=== PATIENT | male | born 1945 | race Caucasian/White ===

== ENCOUNTER → 2018-06-27 14:00 | Outpatient (CLI) | payer MEDICARE, OTHER, SELFPAY | PROVIDERS: PCP Family Medicine; Visit Provider Internal Medicine Cardiovascular Disease | DX: I25.810 Atherosclerosis of coronary artery bypass graft(s) without angina pectoris (principal); Z95.818 Presence of other cardiac implants and grafts; I25.5 Ischemic cardiomyopathy; I48.91 Unspecified atrial fibrillation; I48.92 Unspecified atrial flutter; I10 Essential (primary) hypertension; Z45.02 Encounter for adjustment and management of automatic implantable cardiac defibrillator | CPT/HCPCS: 93284; 99214 ==

== ENCOUNTER → 2018-07-03 08:08 | Outpatient (CLI) | payer MEDICARE, OTHER, SELFPAY ==
[2018-07-03 08:27] VITALS: BP 114/85; PULSE 87; RESP 16; TEMP 36.6; O2SAT 96
--- NOTE | 2018-07-03 08:30 | DI.REPORT_ITS ---
SYMPTOM/DIAGNOSIS: BURSA INJECTION ULTRASOUND GUIDANCE : 07/03 Images were obtained at the time of the procedure and show needle placement in the region of what appears to be trochanteric bursa on the left. Ultrasound guidance was performed for reported bursa injection performed by Dr. Waters. Please see Dr. Waters's procedure note.
[2018-07-03 09:12] VITALS: O2SAT 97
--- NOTE | 2018-07-03 09:14 | PDOC.PAIN ---
Date of Service: 07/03/18 Time of Service: 09:15 Pain Clinic Procedure Note ULTRASOUND GUIDED LEFT TROCHANTERIC BURSA INJECTION Pre-Procedural Evaluation: AGNIESZKA BATRES has been referred to the [facility] for an Ultrasound Guided left TROCHANTERIC BURSA injection for a chief complaint of LEFT LATERAL HIP PAIN. Pre-procedure Pain ScoreL 6/10 DX: LEFT TROCHANTERIC BURSITIS Patient was interviewed and the medical record reviewed. There were no medical, pharmacologic, radiographic, or other structural contraindications to preforming an ultrasound guided injection. Risks and expected side effects as well as potential benefits of the procedure were reviewed. The patient consent form was signed and witnessed. Standard time-out procedure was performed. The use of direct ultrasound visualization of the needle (rather than a non-guided injection) was required to increase patient safety by excluding inadvertent intramuscular, intratendinous, or intraneural needle placement and minimizing bleeding by avoiding osteochondral or vascular injury from the needle. Additionally, the increased accuracy of placement may increase clinical effectiveness and will allow higher diagnostic specificity when evaluating effectiveness of this injection. Procedure Description: The patient was placed in the RIGHT LATERAL RECUMBANT position and automated blood pressure cuff and pulse oximeter applied for monitoring during the procedure and recorded in the medical record. Pre-injection ultrasound scanning of the area of interest was performed using LINEAR transducer, identifying relevant anatomy, landmarks, and neurovascular structures allowing for optimal needle path. The site was then prepared in the usual sterile fashion, using thorough Chlorhexadine preparation of the skin and sterile draping. The same ultrasound transducer was then passed into the sterile field using sterile probe cover and sterile ultrasound gel. The injection target was again visualized. Skin and subcutaneous tissues were anesthetized with 1 mL of 1% Lidocaine. A 25 guage needle 1.5 inch needle was placed under live ultrasound guidance, using an in-plane approach, to the target area. After visualization of the needle tip at the target area, a mixture of 2 mL 1% Lidocaine and 1 mL Depomedrol (80 mg/cc), totaling 3 mL of injectate was delivered after negative aspiration for blood. Ultrasound images were captured and stored for documentation purposes. Post-procedure Pain Score: 1/10 Vital signs were stable throughout the procedure and were as recorded in the docflowsheet by the nursing staff. Follow up plans and appointments were discussed with the patient.Post procedure instruction was given as documented in nursing documentation and having met discharge criteria, they were discharged from the [facility]. COMMENTS: This procedure should be followed by a home exercise program and can be completed up to 3 times per 12 months if it is found to be helpful.
--- NOTE | 2018-07-03 09:19 | PDOC.PAIN_ITS ---
Date of Service: 07/03/18 Time of Service: 09:15 Pain Clinic Procedure Note ULTRASOUND GUIDED LEFT TROCHANTERIC BURSA INJECTION Pre-Procedural Evaluation: AGNIESZKA BATRES has been referred to the [facility] for an Ultrasound Guided left TROCHANTERIC BURSA injection for a chief complaint of LEFT LATERAL HIP PAIN. Pre-procedure Pain ScoreL 6/10 DX: LEFT TROCHANTERIC BURSITIS Patient was interviewed and the medical record reviewed. There were no medical , pharmacologic, radiographic, or other structural contraindications to preforming an ultrasound guided injection. Risks and expected side effects as well as potential benefits of the procedure were reviewed. The patient consent form was signed and witnessed. Standard time-out procedure was performed. The use of direct ultrasound visualization of the needle (rather than a non- guided injection) was required to increase patient safety by excluding inadvertent intramuscular, intratendinous, or intraneural needle placement and minimizing bleeding by avoiding osteochondral or vascular injury from the needle. Additionally, the increased accuracy of placement may increase clinical effectiveness and will allow higher diagnostic specificity when evaluating effectiveness of this injection. Procedure Description: The patient was placed in the RIGHT LATERAL RECUMBANT position and automated blood pressure cuff and pulse oximeter applied for monitoring during the procedure and recorded in the medical record. Pre-injection ultrasound scanning of the area of interest was performed using LINEAR transducer, identifying relevant anatomy, landmarks, and neurovascular structures allowing for optimal needle path. The site was then prepared in the usual sterile fashion, using thorough Chlorhexadine preparation of the skin and sterile draping. The same ultrasound transducer was then passed into the sterile field using sterile probe cover and sterile ultrasound gel. The injection target was again visualized. Skin and subcutaneous tissues were anesthetized with 1 mL of 1% Lidocaine. A 25 guage needle 1.5 inch needle was placed under live ultrasound guidance, using an in-plane approach, to the target area. After visualization of the needle tip at the target area, a mixture of 2 mL 1% Lidocaine and 1 mL Depomedrol (80 mg/cc ), totaling 3 mL of injectate was delivered after negative aspiration for blood. Ultrasound images were captured and stored for documentation purposes. Post-procedure Pain Score: 1/10 Vital signs were stable throughout the procedure and were as recorded in the docflowsheet by the nursing staff. Follow up plans and appointments were discussed with the patient.Post procedure instruction was given as documented in nursing documentation and having met discharge criteria, they were discharged from the [facility]. COMMENTS: This procedure should be followed by a home exercise program and can be completed up to 3 times per 12 months if it is found to be helpful.
[2018-07-03] MEDS: methylPREDNISolone ACETATE 40 MG/ML VIAL IJ (09:29)
== END ==
PROVIDERS: PCP Family Medicine; Visit Provider Preventive Medicine Occupational Medicine
DX: M70.62 Trochanteric bursitis, left hip (principal); Z79.01 Long term (current) use of anticoagulants
CPT/HCPCS: 20610; 76942; J1030

== ENCOUNTER 2018-10-13 09:12 | Outpatient (CLI) | payer MEDICARE, OTHER, SELFPAY ==
[2018-10-13 10:52] LABS: HCT 47.3 % (40.0-50.0); HGB 15.7 g/dL (13.5-17.5); Mean Corp. HGB Concentration 33.2 g/dL (32.0-36.0); Mean Corpuscular Hemoglobin 32.5 pg (27.0-33.0); Mean Corpuscular Volume 97.9 fL (80-95); Mean Platelet Volume 10.6 fL (8.0-11.0); Platelet Count 182 x1000/uL (130-400); RBC 4.83 m/cumm (4.50-6.00); RBC Distribution Width 12.9 % (11.8-14.1); White Blood Cell Count 4.01 k/cumm (4.4-10.8)
[2018-10-13 11:34] LABS: ALT 39 U/L (12-78); AST 26 U/L (15-37); Albumin 3.8 g/dL (3.4-5.0); Alkaline Phosphatase 62 U/L (46-116); Anion Gap 7.3 mmol/L (3-11); BUN 11 mg/dL (7-18); Bilirubin, Total 0.9 mg/dL (0.2-1.0); CO2 31.7 mmol/L (21.0-32.0); Calcium 9.6 mg/dL (8.5-10.1); Chloride 101 mmol/L (98-107); Cholesterol 264 mg/dL (50-200); Glucose 104 mg/dL (70-100); HDL Cholesterol 62 mg/dL (40-60); LDL CHOLESTEROL 161 mg/dL (<100); Potassium 4.2 mmol/L (3.5-5.1); Sodium 140 mmol/L (136-145); Total Protein 6.8 g/dL (6.4-8.2); Triglyceride 308 mg/dL (30-150)
== END 2018-10-13 09:32 ==
PROVIDERS: PCP Family Medicine; Visit Provider Family Medicine
DX: I50.20 Unspecified systolic (congestive) heart failure (principal); I10 Essential (primary) hypertension; Z95.810 Presence of automatic (implantable) cardiac defibrillator; Z79.01 Long term (current) use of anticoagulants
CPT/HCPCS: 80053; 80061; 83721; 85027

== ENCOUNTER → 2018-11-07 13:53 | Outpatient (BNVA) | payer MEDICARE, OTHER, SELFPAY | PROVIDERS: PCP Family Medicine; Visit Provider Internal Medicine Cardiovascular Disease | DX: I25.5 Ischemic cardiomyopathy (principal); I50.22 Chronic systolic (congestive) heart failure; I25.10 Atherosclerotic heart disease of native coronary artery without angina pectoris; I47.1 Supraventricular tachycardia; I11.0 Hypertensive heart disease with heart failure; Z45.018 Encounter for adjustment and management of other part of cardiac pacemaker | CPT/HCPCS: 93284; 99213 ==

== ENCOUNTER 2019-01-07 14:47 | Outpatient (CLI) | payer MEDICARE, OTHER, SELFPAY ==
[2019-01-07 15:48] LABS: HCT 45.4 % (40.0-50.0); HGB 15.3 g/dL (13.5-17.5); Mean Corp. HGB Concentration 33.7 g/dL (32.0-36.0); Mean Corpuscular Hemoglobin 32.3 pg (27.0-33.0); Mean Corpuscular Volume 95.8 fL (80-95); Mean Platelet Volume 10.2 fL (8.0-11.0); Platelet Count 169 x1000/uL (130-400); RBC 4.74 m/cumm (4.50-6.00); RBC Distribution Width 13.7 % (11.8-14.1); White Blood Cell Count 4.47 k/cumm (4.4-10.8)
[2019-01-07 17:07] LABS: INR 1.1 (0.9-1.1); Prothrombin Time 11.4 sec (9.3-11.0)
[2019-01-07 17:18] LABS: ALT 34 U/L (12-78); AST 26 U/L (15-37); Albumin 3.6 g/dL (3.4-5.0); Alkaline Phosphatase 74 U/L (46-116); Anion Gap 9.4 mmol/L (3-11); BUN 9 mg/dL (7-18); CO2 30.6 mmol/L (21.0-32.0); CREATININE 0.57 mg/dL (0.70-1.30); Calcium 9.1 mg/dL (8.5-10.1); Chloride 105 mmol/L (98-107); Glucose 83 mg/dL (70-100); Sodium 145 mmol/L (136-145)
== END 2019-01-07 15:07 ==
PROVIDERS: PCP Family Medicine; Visit Provider Family Medicine
DX: I10 Essential (primary) hypertension (principal); I25.5 Ischemic cardiomyopathy; Z01.818 Encounter for other preprocedural examination
CPT/HCPCS: 36415; 80053; 85027; 71046; 85610

== ENCOUNTER 2019-01-07 16:45 | Outpatient (CLI) | payer MEDICARE, SELFPAY ==
--- NOTE | 2019-01-07 14:30 | DI.RAD_ITS ---
SYMPTOM/DIAGNOSIS: PREOP, Z01.818, PREPROCEDURAL EXAM PA AND LATERAL CHEST: Comparison is made with 06/17/17. There is unchanged elevation of the right hemidiaphragm. Cardiac silhouette is stable. There has been interval placement of pacing wires which are in good position. Pulmonary vasculature is within normal limits. No effusions, infiltrates or pneumothoraces are identified. There is scarring seen in the right upper lobe. Degenerative changes are seen in the spine. IMPRESSION: No acute pulmonary process.
== END 2019-01-07 17:05 ==
PROVIDERS: PCP Family Medicine; Visit Provider Family Medicine
DX: I25.5 Ischemic cardiomyopathy (principal); Z01.818 Encounter for other preprocedural examination
CPT/HCPCS: 71046

== ENCOUNTER 2019-01-22 14:09 | Outpatient (CLI) | payer MEDICARE, OTHER, SELFPAY ==
--- NOTE | 2019-01-22 14:39 | DI.CT_ITS ---
SYMPTOMS/DIAGNOSIS: SURGICAL PLANNING FOR LUMBAR FUSION, LUMBAR FORAMINAL STENOSIS, M99.83, LUMBAR RADICULOPATHY, M54.16 CT SCAN OF THE LUMBAR SPINE: Multiple contiguous axial images of the lumbar spine were obtained. Sagittal and coronal reformatted images were evaluated on the Siemens workstation. There is normal alignment of the lumbar spine. No spondylosis or spondylolisthesis is seen. There is an unchanged compression deformity of the superior endplate of L 3. This was present on the MRI of the lumbar spine from 08/12/18. No acute compression fractures are seen in the lumbar spine. At L 5 - S 1 no diffuse disc bulge or focal disc herniation is seen. There are degenerative changes of the facets. No significant neural foraminal stenosis is present. At L 4 - 5 there is a diffuse disc bulge. There are degenerative changes of the facets and hypertrophy of the ligament of flavum causing mild narrowing of the central spinal canal. There is mild narrowing of the right neural foramen and severe narrowing of the left neural foramen. At L 3 - 4 there is a vacuum disc. There is a diffuse disc bulge. There are hypertrophic changes of the facets and ligament of flavum. The findings cause mild to moderate central spinal canal stenosis. There is moderate right neural foraminal stenosis and mild left neural foraminal stenosis. At L 2 - 3 there is a vacuum disc. There is a mild diffuse disc bulge. No significant central spinal canal stenosis is present. No significant neural foraminal stenosis is seen. At L 1 - 2 there is no focal disc herniation, central spinal canal or neural foraminal stenosis. There is atherosclerosis and tortuosity of the thoracic aorta. IMPRESSION: 1. Multi-level degenerative changes in the lumbar. 2. Degenerative changes are most marked at L 3 - 4 and L 4 - 5 where there is central spinal canal and neural foraminal stenosis as described above.
== END 2019-01-22 14:29 ==
PROVIDERS: PCP Family Medicine; Referring Provider Physician Assistant
DX: M54.16 Radiculopathy, lumbar region (principal); M47.26 Other spondylosis with radiculopathy, lumbar region
CPT/HCPCS: 72131

== ENCOUNTER 2019-02-19 16:41 | Outpatient (CLI) | payer MEDICARE, OTHER, SELFPAY ==
--- NOTE | 2019-02-19 11:10 | DI.RAD_ITS ---
SYMPTOM/DIAGNOSIS: H/O PNEUMONIA, ISCHEMIC CARDIOMYOPATHY, I25.5, PREOP PA AND LATERAL CHEST: The lungs are free of infiltrate. There is no pleural effusion. Note is made of chronic elevation of the right hemidiaphragm. The heart is top limits of normal in size to mildly enlarged. Pacing wires are in stable position. The hilar structures, mediastinum and tracheal air column are intact. SUMMARY: No evidence of acute cardiopulmonary disease.
[2019-02-19 11:59] LABS: HCT 45.7 % (40.0-50.0); HGB 15.2 g/dL (13.5-17.5); Mean Corp. HGB Concentration 33.3 g/dL (32.0-36.0); Mean Corpuscular Hemoglobin 31.8 pg (27.0-33.0); Mean Corpuscular Volume 95.6 fL (80-95); Mean Platelet Volume 10.5 fL (8.0-11.0); Platelet Count 159 x1000/uL (130-400); RBC 4.78 m/cumm (4.50-6.00); RBC Distribution Width 13.9 % (11.8-14.1); White Blood Cell Count 4.97 k/cumm (4.4-10.8)
[2019-02-19 12:06] LABS: INR 1.2 (0.9-1.1); Prothrombin Time 11.6 sec (9.3-11.0)
[2019-02-19 12:35] LABS: ALT 25 U/L (12-78); AST 16 U/L (15-37); Albumin 3.8 g/dL (3.4-5.0); Alkaline Phosphatase 65 U/L (46-116); Anion Gap 8.2 mmol/L (3-11); BUN 14 mg/dL (7-18); Bilirubin, Total 1.1 mg/dL (0.2-1.0); CO2 30.8 mmol/L (21.0-32.0); Calcium 9.2 mg/dL (8.5-10.1); Chloride 102 mmol/L (98-107); Glucose 115 mg/dL (70-100); Potassium 3.9 mmol/L (3.5-5.1); Sodium 141 mmol/L (136-145); Total Protein 6.7 g/dL (6.4-8.2)
== END 2019-02-19 17:01 ==
PROVIDERS: PCP Family Medicine; Visit Provider Family Medicine
DX: I25.5 Ischemic cardiomyopathy (principal); I10 Essential (primary) hypertension; Z95.0 Presence of cardiac pacemaker; Z01.818 Encounter for other preprocedural examination; Z79.01 Long term (current) use of anticoagulants
CPT/HCPCS: 36415; 80053; 85027; 71046; 85610

== ENCOUNTER → 2019-03-03 10:19 | Outpatient (BNVA) | payer MEDICARE, OTHER, SELFPAY | PROVIDERS: PCP Family Medicine; Visit Provider Nurse Practitioner Primary Care | DX: I25.5 Ischemic cardiomyopathy (principal); I10 Essential (primary) hypertension; I25.10 Atherosclerotic heart disease of native coronary artery without angina pectoris; I47.1 Supraventricular tachycardia; Z79.01 Long term (current) use of anticoagulants; Z45.02 Encounter for adjustment and management of automatic implantable cardiac defibrillator | CPT/HCPCS: 93289; 99214 ==

== ENCOUNTER → 2019-06-18 13:49 | Outpatient (BNVA) | payer MEDICARE, OTHER, SELFPAY | PROVIDERS: PCP Family Medicine; Visit Provider Internal Medicine Cardiovascular Disease | DX: I25.5 Ischemic cardiomyopathy (principal); I11.0 Hypertensive heart disease with heart failure; I50.22 Chronic systolic (congestive) heart failure; Z45.02 Encounter for adjustment and management of automatic implantable cardiac defibrillator; I48.2 Chronic atrial fibrillation; I47.1 Supraventricular tachycardia; Z95.1 Presence of aortocoronary bypass graft; Z87.891 Personal history of nicotine dependence; Z79.01 Long term (current) use of anticoagulants; Z72.89 Other problems related to lifestyle | CPT/HCPCS: 93284; 99214 ==

== ENCOUNTER 2019-09-14 10:27 | Emergency (ER) | payer MEDICARE, OTHER, SELFPAY ==
[2019-09-14 10:42] VITALS: BP 139/103; PULSE 85; RESP 16; TEMP 36.4; O2SAT 96
--- NOTE | 2019-09-14 12:16 | DI.RAD_ITS ---
EXAM: XR CHEST 2V PA LATERAL INDICATION: cough, congestion, SOB, h/o PNA. COMPARISON: XR CHEST 2V PA LATERAL from 02/19/2019 TECHNIQUE: 2D digital imaging was performed. FINDINGS: The heart is mildly enlarged. The pacing wires are stable in position. The pulmonary vasculature is within normal limits. There is unchanged scarring in the right mid lung. No focal consolidating in filtrates are present. No pleural effusions or pneumothoraces are identified. There is unchanged el evation of the right hemidiaphragm. Age-appropriate degenerative changes are seen in the spine. IMPRESSION: No acute pulmonary process.
[2019-09-14 12:49] LABS: Abs Immature Grans 0.02 k/cumm (0.0-0.09); Absolute Basophil Count 0.04 k/cumm (0.0-0.2); Absolute Eosinophil Count 0.18 k/cumm (0.0-0.7); Absolute Lymphocyte Count 1.07 k/cumm (1.2-3.4); Absolute Monocyte Count 0.59 k/cumm (0.11-0.7); Absolute Neutrophil Count 4.63 k/cumm (1.2-6.7); Basophils % 0.6; Eosinophils % 2.8; HCT 44.7 % (40.0-50.0); Immature Grans % 0.3; Lymphocytes % 16.4; Mean Corp. HGB Concentration 33.6 g/dL (32.0-36.0); Mean Corpuscular Hemoglobin 31.1 pg (27.0-33.0); Mean Corpuscular Volume 92.5 fL (80-95); Mean Platelet Volume 9.8 fL (8.0-11.0); Neutrophils % 70.9; Platelet Count 237 x1000/uL (130-400); RBC 4.83 m/cumm (4.50-6.00); RBC Distribution Width 14.8 % (11.8-14.1); White Blood Cell Count 6.53 k/cumm (4.4-10.8)
[2019-09-14 12:59] LABS: ALT 24 U/L (16-63); AST 15 U/L (15-37); Albumin 3.6 g/dL (3.4-5.0); Alkaline Phosphatase 95 U/L (46-116); Anion Gap 6.3 mmol/L (3-11); BUN 12 mg/dL (7-18); Bilirubin, Total 1.5 mg/dL (0.2-1.0); CO2 28.7 mmol/L (21.0-32.0); CREATININE 0.75 mg/dL (0.70-1.30); Calcium 9.4 mg/dL (8.5-10.1); Chloride 103 mmol/L (98-107); Glucose 123 mg/dL (70-100); Potassium 3.8 mmol/L (3.5-5.1); Sodium 138 mmol/L (136-145); Total Protein 7.3 g/dL (6.4-8.2)
--- NOTE | 2019-09-14 13:01 | W.ED.GENAD ---
Discharge Plan Disposition Patient Disposition: HOME Discharge Details Chief Complaint: RespSymp Clinical Impression: Acute upper respiratory infection Primary Care Provider: Isabel Maciel ED Provider: Dago Denton Home Meds and New Rx's Prescriptions: No Action multivitamin 1 EACH tablet 1 ea PO DAILY RF: 0 aspirin [Aspirin Low-Strength] 81 MG tablet,chewable 1 tab.chew PO DAILY RF: 0 cholecalciferol (vitamin D3) 1,000 UNIT capsule 1 cap PO DAILY RF: 0 magnesium oxide 500 MG capsule 1 cap PO BID RF: 0 carvedilol 25 mg tablet 25 mg PO BID RF: 0 Eliquis 5 mg tablet 5 mg PO BID Qty: 180 RF: 12 lisinopril 10 mg tablet 10 mg PO DAILY Qty: 90 RF: 3 prednisone 10 mg tablet 10 mg PO DAILY PRN (Reason: spinal stenosis) Qty: 60 RF: 0 indomethacin 25 mg capsule 25 mg PO BID Qty: 60 RF: 0 Discharge Instructions Instructions: Upper Respiratory Infection (ED) Additional Instructions: Your x-ray was negative for pneumonia in the emergency department. Blood tests were normal. Most likely viral upper respiratory infection at play. Continue with supportive care. Return to the emergency department should your symptoms acutely worsen. Follow-up with your primary care provider should they persist over the next 4 to 7 days. Referrals: Isabel Maciel [place], [place] [Primary Care Provider] - 1 week Medical Decision Making This is a nontoxic-appearing 74-year-old male presenting to the emergency department with symptoms of cough and sore throat over the last 3 weeks. His had similar symptoms which have resolved. His checks x-ray is negative for pneumonia. Labs are unremarkable. Vitals are stable here in the emergency department and he has no worrisome signs on physical exam. We discussed the likelihood lingering viral URI and the need to follow-up with his primary care provider should his symptoms persist. If his symptoms acutely worsen he should return to the emergency department immediately. HPI General Date/Time Provider Initiated Documentation: 09/14/19 10:41. HPI Narrative: Patient is a 74-year-old male who states that roughly 3 weeks ago developed URI symptoms and fatigue. He states that his symptoms of cough and sore throat have persisted over the last 3 weeks. His cough is worse with lying flat. He denies any shortness of breath or chest pain. His had similar symptoms however her symptoms are now resolved. He denies any nausea or vomiting. No abdominal pain. No rashes. No headache. He has not had any fevers however has reported chills and fatigue Related Data Home Medications Medication Instructions Recorded Confirmed aspirin [Aspirin Low-Strength] 1 tab.chew PO DAILY tab-cap 03/23/13 09/14/19 cholecalciferol (vitamin D3) 1 cap PO DAILY 03/23/13 06/18/19 multivitamin 1 ea PO DAILY 03/23/13 09/14/19 magnesium oxide 1 cap PO BID 06/24/17 09/14/19 carvedilol 25 mg tablet 25 mg PO BID 01/06/19 09/14/19 apixaban 5 mg tablet 5 mg PO BID #180 tab 06/08/19 09/14/19 lisinopril 10 mg tablet 10 mg PO DAILY #90 tab-cap 06/15/19 09/14/19 prednisone 10 mg tablet 10 mg PO DAILY PRN #60 tab-cap 07/03/19 09/14/19 indomethacin 25 mg capsule 25 mg PO BID #60 cap 08/13/19 09/14/19 Previous Rx's Medication Instructions Recorded apixaban 5 mg tablet 5 mg PO BID #180 tab 06/08/19 lisinopril 10 mg tablet 10 mg PO DAILY #90 tab-cap 06/15/19 prednisone 10 mg tablet 10 mg PO DAILY PRN #60 tab-cap 07/03/19 indomethacin 25 mg capsule 25 mg PO BID #60 cap 08/13/19 Allergies Allergy/AdvReac Type Severity Reaction Status Date / Time niacin AdvReac Intermediate GETS HOT Unverified 09/14/19 10:44 AND RED ALL OVER Gjotuji-Mtm-Mrl Reductase AdvReac Intermediate FEELS Unverified 09/14/19 10:44 Inhibitor ROTTEN General Stated Complaint: RespSymp BROOKS: 4 Review of Systems Constitutional Constitutional: Reports fatigue, Denies fever(s), Reports lethargy, Reports malaise, Denies night sweats and Reports weakness ENT Ears, Nose, Mouth, and Throat: Denies neck pain, Reports sinus pressure and Reports sore throat Cardiovascular Cardiovascular: Denies chest pain, Denies dyspnea, Denies dyspnea on exertion, Denies orthopnea and Denies paroxysmal nocturnal dyspnea Respiratory Respiratory: Denies dyspnea, Denies dyspnea on exertion and Denies wheezing Gastrointestinal Gastrointestinal: Denies nausea and Denies vomiting Genitourinary Genitourinary: Denies flank pain Musculoskeletal Musculoskeletal: Denies neck pain Integumentary/Breasts Skin/Breast: Denies rash Neurologic Neurologic: Reports weakness Endocrine Endocrine: Reports fatigue Allergic/Immunologic Allergic/Immunologic: Denies wheezing [facility] Medical History Alcohol intake above recommended sensible limits (Chronic) Anticoagulant long-term use (Chronic 08/16/17) Atrial tachycardia (Chronic 08/16/17) Benign prostatic hyperplasia (Chronic) Bilateral foot pain (Chronic 10/31/17) Cholesteatoma (Chronic 10/17/04) 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) [facility] Chronic systolic CHF, NYHA class 2 and LINDSEY/AHA stage C (Chronic 08/16/17) Disorder of lung (Resolved) lung infiltrate; question of aspiration long antibx couse Dario hematuria (Resolved) History of tobacco use (Resolved) Spinal stenosis of lumbar region at multiple levels (Chronic 07/12/15) Spinal stenosis of lumbar region with radiculopathy (Chronic) 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 Brother No problems noted. Grandfather Personal history of malignant neoplasm Grandfather No problems noted. Grandmother No problems noted. Grandmother Heart disease Sister No problems noted. Brother No problems noted. Son Depression Heart disease ND at 38, 6 stents Daughter No problems noted. Social History Smoking/Tobacco Use Status: Former Tobacco Use Alcohol Intake: current Alcohol Intake frequency: 0-2 drinks per day Details: significantly higher alcohol use in the past Drug use: Never Household members: spouse Exam Const General: cooperative, healthy appearing, comfortable and no acute distress Orientation: alert, awake and oriented x3 HENMT Head: normal to inspection Ears: hearing grossly normal bilaterally Face and sinus: normal facial exam Mouth: oral mucosae normal Throat: posterior oropharynx normal Eyes General: appearance normal, both eyes and all related structures Pupils: PERRL EOM: EOM intact bilaterally Neck Neck: normal visual inspection, full ROM, no lymphadenopathy and no meningeal signs Chest Chest: normal inspection of the chest Resp Effort & Inspection: normal respiratory effort and able to speak in complete sentences Auscultation: clear to auscultation bilaterally Cardio Rate: regular rate Rhythm: abnormal rhythm irregularly irregular Pulses: normal peripheral pulses GI Inspection: normal to inspection Back/Spine/Pelvis Back: no CVA tenderness Skin Rashes: no rashes Extrem General: normal to inspection, full ROM, normal capillary refill and no pedal edema Course Vital Signs Vital signs: Vital Signs Temperature 36.4 C L 09/14/19 10:42 Pulse 85 09/14/19 10:42 Respiratory Rate 16 09/14/19 10:42 Blood Pressure 139/103 H 09/14/19 10:42 Pulse Oximetry 96 09/14/19 10:42 Temperature 36.4 C L 09/14/19 10:42 Temperature Source Skin 09/14/19 10:42 Pulse 85 09/14/19 10:42 Respiratory Rate 16 09/14/19 10:42 Respiratory Effort 09/14/19 10:56 Respiratory Depth Normal 09/14/19 10:56 Blood Pressure 139/103 H 09/14/19 10:42 Blood Pressure Position Sitting 09/14/19 10:42 Pulse Oximetry 96 09/14/19 10:42 Oxygen Delivery Method Room Air 09/14/19 10:42 Oxygen Flow Rate 0 09/14/19 10:42 Pain Level 0 09/14/19 10:42 Lab/Test Results Lab/Test Results: 09/14/19 12:43 Nasopharynx Influenza Types A,B Antigen - Pending Laboratory Tests Range/Units 09/14/19 09/14/19 12:40 12:40 WBC (4.4-10.8) k/cumm 6.53 RBC (4.50-6.00) m/cumm 4.83 Hgb (13.5-17.5) g/dL 15.0 Hct (40.0-50.0) % 44.7 MCV (80-95) fL 92.5 MCH (27.0-33.0) pg 31.1 MCHC (32.0-36.0) g/dL 33.6 RDW (11.8-14.1) % 14.8 H Plt Count (130-400) x1000/uL 237 MPV (8.0-11.0) fL 9.8 Immature Gran % 0.3 Neutrophils % 70.9 Lymphocytes % 16.4 Monocytes % 9.0 Eosinophils % 2.8 Basophils % 0.6 Absolute Neutrophils (1.2-6.7) k/cumm 4.63 Absolute Lymphocytes (1.2-3.4) k/cumm 1.07 L Absolute Monocytes (0.11-0.7) k/cumm 0.59 Absolute Eosinophils (0.0-0.7) k/cumm 0.18 Absolute Basophils (0.0-0.2) k/cumm 0.04 Sodium (136-145) mmol/L 138 Potassium (3.5-5.1) mmol/L 3.8 Chloride (98-107) mmol/L 103 Carbon Dioxide (21.0-32.0) mmol/L 28.7 Anion Gap (3-11) mmol/L 6.3 BUN (7-18) mg/dL 12 Creatinine (0.70-1.30) mg/dL 0.75 Estimated GFR/1.73 m2 (mL/min/1.73m2) >= 60.00 Glucose (70-100) mg/dL 123 H Calcium (8.5-10.1) mg/dL 9.4 Total Bilirubin (0.2-1.0) mg/dL 1.5 H AST (15-37) U/L 15 ALT (16-63) U/L 24 Alkaline Phosphatase (46-116) U/L 95 Total Protein (6.4-8.2) g/dL 7.3 Albumin (3.4-5.0) g/dL 3.6
== END 2019-09-14 13:28 | disposition home or self-care (01) ==
PROVIDERS: Emergency Provider Physician Assistant; PCP Family Medicine
DX: J06.9 Acute upper respiratory infection, unspecified (principal); I50.22 Chronic systolic (congestive) heart failure; I11.0 Hypertensive heart disease with heart failure
CPT/HCPCS: 36415; 80053; 87449; 99284; 71046; 85025

== ENCOUNTER 2019-12-29 11:00 | Outpatient (CLI) | payer MEDICARE, OTHER, SELFPAY ==
--- NOTE | 2019-12-29 11:33 | DI.RAD_ITS ---
EXAM: XR CHEST 2V PA LATERAL INDICATION: chf, ischemic cardiomyopathy, I25.5. COMPARISON: XR CHEST 2V PA LATERAL from 09/14/2019 TECHNIQUE: 2D digital imaging was performed. FINDINGS: The heart is enlarged, unchanged. Pacemaker is again noted. Right diaphragm is elevated, unchanged . There is mild linear scarring. No superimposed infiltrate, effusion or pulmonary edema is seen. IMPRESSION: No acute abnormality.
[2019-12-29 11:43] LABS: Abs Immature Grans 0.01 k/cumm (0.0-0.09); Absolute Basophil Count 0.02 k/cumm (0.0-0.2); Absolute Eosinophil Count 0.09 k/cumm (0.0-0.7); Absolute Lymphocyte Count 0.94 k/cumm (1.2-3.4); Absolute Monocyte Count 0.41 k/cumm (0.11-0.7); Absolute Neutrophil Count 2.77 k/cumm (1.2-6.7); Basophils % 0.5; Eosinophils % 2.1; HCT 46.8 % (40.0-50.0); HGB 15.2 g/dL (13.5-17.5); Immature Grans % 0.2 %; Lymphocytes % 22.2; Mean Corp. HGB Concentration 32.5 g/dL (32.0-36.0); Mean Corpuscular Hemoglobin 31.8 pg (27.0-33.0); Mean Corpuscular Volume 97.9 fL (80-95); Mean Platelet Volume 10.5 fL (8.0-11.0); Monocytes % 9.7; Neutrophils % 65.3; Platelet Count 164 x1000/uL (130-400); RBC 4.78 m/cumm (4.50-6.00); RBC Distribution Width 14.6 % (11.8-14.1); White Blood Cell Count 4.24 k/cumm (4.4-10.8)
[2019-12-29 12:53] LABS: ALT 21 U/L (16-63); AST 17 U/L (15-37); Alkaline Phosphatase 72 U/L (46-116); Anion Gap 6.6 mmol/L (3-11); BUN 10 mg/dL (7-18); Bilirubin, Total 2.1 mg/dL (0.2-1.0); CO2 31.4 mmol/L (21.0-32.0); CREATININE 0.92 mg/dL (0.70-1.30); Calcium 9.5 mg/dL (8.5-10.1); Chloride 106 mmol/L (98-107); Glucose 115 mg/dL (74-106); Magnesium 1.7 mg/dL (1.8-2.4); NT-proBNP 8620 pg/mL (<300); Potassium 4.2 mmol/L (3.5-5.1); Sodium 144 mmol/L (136-145); TSH (W/Ref FT4) 1.47 uIU/mL (0.36-3.74); Total Protein 6.6 g/dL (6.4-8.2)
[2019-12-30 14:00] LABS: PSA, Diagnostic 0.6 ng/mL (0.0-6.5)
== END 2019-12-29 11:20 ==
PROVIDERS: PCP Family Medicine; Visit Provider Family Medicine
DX: I50.22 Chronic systolic (congestive) heart failure (principal); I25.5 Ischemic cardiomyopathy; R53.83 Other fatigue; N40.0 Benign prostatic hyperplasia without lower urinary tract symptoms
CPT/HCPCS: 36415; 80053; 71046; 83735; 83880; 84153; 84443; 85025

== ENCOUNTER 2020-01-08 13:04 | Outpatient (CLI) | payer MEDICARE, OTHER, SELFPAY ==
--- NOTE | 2020-01-08 13:00 | DI.US_ITS ---
APPROVED REPORT EXAM: Comprehensive 2D, Doppler, and color-flow Echocardiogram Patient Location: Out-Patient Farm Equipment Engineer: Eloina Barraza RDCS ([place]) Indications: Fatigue, Cardiomyopathy Conclusion Left Ventricle : The left ventricle is severely dilated. Left ventricular systolic function is mild t o moderately decreased. Asymmetric septal thickening is noted. The posterior wall thickness is mildl y increased. There is global hypokinesis There is grade 3 diastolic dysfunction present LVEF is 30-3 4%. Right Ventricle : Right ventricle is mildly dilated. Right ventricular systolic function could not be assessed. Atria : Left atrium is mildly dilated. Right atrium is mildly dilated. Aortic Valve : Aortic valve is trileaflet. Aortic valve is calcified. Trace aortic regurgitation. The re is no aortic valvular stenosis. Mitral Valve : There is mitral annular calcification. Mild to moderate mitral regurgitation. Tricuspid Valve : The tricuspid valve is normal in structure. Trace to mild tricuspid regurgitation. Great Vessels : The aortic root is normal in size. The ascending aorta is normal in size. The IVC c ollapses <50% with inspiration. Compared to echocardiogram dated 04/10/2017: There is no significant change. Wall motion Left Ventricle The left ventricle is severely dilated. Left ventricular systolic function is mild to moderately decr eased. Asymmetric septal thickening is noted. The posterior wall thickness is mildly increased. There is global hypokinesis. There is grade 3 diastolic dysfunction present LVEF is 30-34%. Right Ventricle Right ventricle is mildly dilated. Right ventricular systolic function could not be assessed. Atria Left atrium is mildly dilated. Right atrium is mildly dilated. Aortic Valve Aortic valve is trileaflet. Aortic valve is calcified. There is no aortic valvular stenosis. Trace ao rtic regurgitation. Mitral Valve There is mitral annular calcification. Mild to moderate mitral regurgitation. Tricuspid Valve The tricuspid valve is normal in structure. Trace to mild tricuspid regurgitation. Pulmonic Valve Pulmonic valve is grossly normal in structure. There is no pulmonic valvular stenosis. Mild pulmonic regurgitation. Great Vessels The aortic root is normal in size. The ascending aorta is normal in size. The IVC collapses <50% with inspiration. Pericardium There is no pericardial effusion. There is no pleural effusion. 2D Dimensions IVSD d PLAX 1.22 cm M: 0.6-1.2 LV Vol A2C d MOD 189.3 mL LVPW d PLAX 1.10 cm M: 0.6 - 1.2 LV Vol A4C d MOD 174.9 mL LVID d PLAX 6.37 cm M: 4.2 - 5.8 LA vol/ BSA A2C s A-L 33.9 mL/m2 LVDs 5.60 cm M: 2.5 - 4.0 LA vol/ BSA A4C s A-L 60.8 mL/m2 Ao Root d 3.31 cm M: 3.1 - 3.7 LA Vol/ BSA Biplane s A-L 46.2 mL/m2 RA Area A4C 22.29 cm2 LA Area A4C s MOD 30.11 cm2 RA Vol/ BSA A4C s A-L 42.4 mL/m2 LA Area A2C s MOD 22.86 cm2 Ao Asc Diam d 3.49 cm M: 2.6 - 3.4 LV EF A4C MOD 30.3 % LV EF Teichholz 24.0 % LV EF A2C MOD 33.0 % LVEF (Cohen's) 31.93 % M: 52 - 72 LV EF Biplane MOD 31.9 % LV Volume 137.33 mL M: 62 - 150 LV Volume Index 66.66 mL/m2 M: 34 - 74 LV Vol Biplane MOD 185.1 mL FS 11.30 % LV Diastology MV E' medial 0.043 (>0.07 m/s) E/A Ratio 2.7 LV E/e MED 15.45 (<14) MV E Vmax 0.67 (0.4-1.3 m/s) MV E' lateral 0.063 (>0.1 m/s) MV A Vmax 0.25 (0.4-1.3 m/s) LV E/e LAT 10.65 (<14) MV E/A Ratio 2.64 MV E/E' medial 15.47 MV E/E' lateral 10.67 Aortic Valve LVOT Vmax 0.81 m/s AR DT 1191 msec LVOT Mean Jasvir. 0.56 m/s AR PHT 345 msec LVOT Peak Grad 2.6 mmHg LVOT Mean Grad 1.4 mmHg LVOT VTI 0.148 m AoV Vmax 1.22 (0.5-1.3 m/s) Velocity Ratio 0.66 AoV Mean Jasvir. 0.84 m/s AoV Peak Grad 5.9 mmHg AoV Mean Grad 3.2 (<5 mmHg) AoV VTI 0.199 (0.18-0.25 m) Mitral Valve MV DT 232 (160-240 msec) MR Vmax 4.25 m/s MV PHT 67 msec MR VTI 1.361 m MV Area PHT 3.27 cm2 MR Peak Grad 72.4 mmHg MR Mean Grad 53.1 mmHg MR PISA Radius 0.69 cm MR EROA 0.33 cm2 MR Aliasing Velocity 0.46 m/s MR PISA 3.01 cm2 Pulmonary Valve PV Vmax 0.89 (0.5-1.5 m/s) PV Peak Grad 3.2 mmHg PV Mean Grad 1.5 mmHg PV VTI 0.121 m Tricuspid Valve TR Peak Grad 25.8 mmHg TR Vmax 2.54 m/s RA Pressure 8.00 mmHg
== END 2020-01-08 13:24 ==
PROVIDERS: PCP Family Medicine; Visit Provider Family Medicine
DX: I25.5 Ischemic cardiomyopathy (principal); R53.83 Other fatigue; I08.1 Rheumatic disorders of both mitral and tricuspid valves
CPT/HCPCS: 93306

== ENCOUNTER 2020-08-03 01:41 | Outpatient (CLI) | payer MEDICARE, OTHER, SELFPAY ==
--- NOTE | 2020-08-03 13:59 | DI.US_ITS ---
APPROVED REPORT EXAM: Comprehensive 2D, Doppler, and color-flow Echocardiogram Patient Location: Out-Patient Cash Applications Clerk: Eloina Barraza RDCS (AE) Indications: Cardiomyopathy Other Information Study Quality: Adequate Conclusion Left Ventricle : Left ventricle is severely dilated. Left ventricular systolic function is moderately decreased. Asymmetric septal thickening is noted. There is global hypokinesis of the left ventricle. The left ventricular diastolic function is abnormal. LVEF is 33%. Right Ventricle : The right ventricle is normal size. The right ventricular systolic function is low normal. The RVSP is 27.3 mmHg. Atria : Left atrium is mildly dilated. Right atrium is borderline dilated. Mitral Valve : Mild mitral annular calcification. No evidence of mitral valve stenosis. Mild to moder ate mitral regurgitation. Great Vessels : The aortic root is normal in size. The ascending aorta is mildly dilated. Ascending a peggy is not well visualized. IVC is normal in size and collapses >50% with inspiration. Please see remainder of study for further details. Compared to study from 01/08/2020: There is no sig nificant change. Wall motion Left Ventricle Left ventricle is severely dilated. Left ventricular systolic function is moderately decreased. Asymm etric septal thickening is noted. There is global hypokinesis of the left ventricle. The left ventric ular diastolic function is abnormal. There is no ventricular septal defect visualized. LVEF is 33%. Right Ventricle The right ventricle is normal size. The right ventricular systolic function is low normal. The RVSP i s 27.3 mmHg. Device lead is present in the right ventricle. Atria Left atrium is mildly dilated. Right atrium is borderline dilated. The interatrial septum is intact w ith no evidence for an atrial septal defect. Aortic Valve Aortic valve is calcified. The Aortic valve is sclerotic. Aortic valve is trileaflet. There is no aor tic valvular stenosis. Trace aortic regurgitation. Mitral Valve Mild mitral annular calcification. No evidence of mitral valve stenosis. Mild to moderate mitral regu rgitation. Tricuspid Valve The tricuspid valve is normal in structure. There is no tricuspid valve stenosis. Mild tricuspid regu rgitation. Pulmonic Valve The pulmonary valve is normal in structure. There is no pulmonic valvular stenosis. Trace pulmonic re gurgitation. Great Vessels The aortic root is normal in size. The ascending aorta is mildly dilated. Ascending aorta is not well visualized. IVC is normal in size and collapses >50% with inspiration. Pericardium There is no pericardial effusion. 2D Dimensions IVSD d PLAX 1.23 cm M: 0.6-1.2 LV Vol A2C d MOD 183.2 mL LVPW d PLAX 1.07 cm M: 0.6 - 1.2 LV Vol A4C d MOD 176.6 mL LVID d PLAX 6.03 cm M: 4.2 - 5.8 LA vol/ BSA A2C s A-L 42.8 mL/m2 LVDs 5.10 cm M: 2.5 - 4.0 LA vol/ BSA A4C s A-L 53.9 mL/m2 Ao Root d 3.37 cm M: 3.1 - 3.7 LA Vol/ BSA Biplane s A-L 51.8 mL/m2 RA Area A4C 21.58 cm2 LA Area A4C s MOD 29.82 cm2 RA Vol/ BSA A4C s A-L 32.2 mL/m2 LA Area A2C s MOD 24.69 cm2 Ao Asc Diam d 3.66 cm M: 2.6 - 3.4 LV EF A4C MOD 33.7 % LV EF Teichholz 31.1 % LV EF A2C MOD 31.2 % LVEF (Cohen's) 32.52 % M: 52 - 72 LV EF Biplane MOD 32.5 % LV Volume 133.65 mL M: 62 - 150 SV 58.77 mL LV Volume Index 64.25 mL/m2 M: 34 - 74 SV Index 28.16 mL/m2 LV Vol Biplane MOD 180.7 mL FS 14.95 % M-Mode TAPSE 1.39 cm (M/F) >1.7 LV Diastology MV E' medial 0.069 (>0.07 m/s) MV E Vmax 0.79 (0.4-1.3 m/s) LV E/e MED 11.35 (<14) MV E' lateral 0.081 (>0.1 m/s) LV E/e LAT 9.75 (<14) MV E/E' medial 11.36 MV E/E' lateral 9.76 Aortic Valve LVOT Area 3.65 cm2 AoV Area Vmax 3.01 cm2 LVOT Vmax 0.99 m/s AoV Area/ BSA (Vmax) 1.44 cm2/m2 LVOT Mean Jasvir. 0.63 m/s NEENA Mean Jasvir. 2.65 cm2 LVOT Peak Grad 3.9 mmHg NEENA Mean Jasvir. Index 1.27 cm2/m2 LVOT Mean Grad 1.9 mmHg AR DT 1355 msec LVOT VTI 0.181 m AR PHT 393 msec LVOT Diam s 2.15 cm AoV Vmax 1.20 m/s Velocity Ratio 0.82 AoV Mean Jasvir. 0.87 m/s AoV Peak Grad 5.8 mmHg LVOT SV 66.02 mL AoV Mean Grad 3.3 mmHg AoV VTI 0.208 m AoV Area VTI 3.17 cm2 AoV Area/ BSA (VTI) 1.52 cm/m2 Mitral Valve MV DT 180 (160-240 msec) MR Vmax 4.89 m/s MV PHT 52 msec MR VTI 1.617 m MV Area PHT 4.21 cm2 MR Peak Grad 95.6 mmHg MV VTI 0.201 m MR Mean Grad 62.1 mmHg MV VTI Annulus 0.207 m MR PISA Radius 0.52 cm MV Area VTI 3.38 (4.0-6.0 cm2) MR EROA 0.12 cm2 MR Aliasing Velocity 0.35 m/s MR PISA 1.72 cm2 Pulmonary Valve PV Vmax 1.02 (0.5-1.5 m/s) RVOT Peak Gr. 1.27 mmHg PV Peak Grad 4.2 mmHg RVOT Mean Gr. 0.80 mmHg PV Mean Grad 1.8 mmHg RVOT VTI 0.071 m PV VTI 0.124 m RVOT Vmax 0.56 m/s Tricuspid Valve TR Peak Grad 24.2 mmHg TR Vmax 2.46 m/s RA Pressure 3.00 mmHg RVSP (TR) 27.3 mmHg
== END 2020-08-03 02:01 ==
PROVIDERS: PCP Family Medicine; Visit Provider Internal Medicine Cardiovascular Disease
DX: I42.9 Cardiomyopathy, unspecified (principal); I08.0 Rheumatic disorders of both mitral and aortic valves
CPT/HCPCS: 93306

== ENCOUNTER 2021-12-28 02:53 | Outpatient (CLI) | payer MEDICARE, OTHER, SELFPAY ==
[2021-12-28 12:18] LABS: Abs Immature Grans 0.06 10^3/uL (0.0-0.06); Absolute Basophil Count 0.04 10^3/uL (0.0-0.2); Absolute Eosinophil Count 0.06 10^3/uL (0.0-0.7); Absolute Lymphocyte Count 1.01 10^3/uL (1.2-3.4); Absolute Monocyte Count 0.45 10^3/uL (0.1-0.8); Absolute Neutrophil Count 4.18 10^3/uL (1.2-6.7); Basophils % 0.7; HCT 41.5 % (40.0-50.0); HGB 13.8 g/dL (13.5-17.5); Lymphocytes % 17.4; MCH 32.2 pg (27.0-33.0); MCHC 33.3 % (32.0-36.0); MPV 9.1 fL (8.0-11.0); Monocytes % 7.8; Neutrophils % 72.1; Nucleated RBC 0 %; Platelet Count 216 10^3/uL (130-400); RBC 4.28 10^6/uL (4.36-5.78); RDW 12.8 % (11.8-14.1); RDW-SD 46.1 fL
[2021-12-28 14:14] LABS: ALT 21 U/L (16-63); AST 18 U/L (15-37); Albumin 3.7 g/dL (3.4-5.0); Alkaline Phosphatase 68 U/L (46-116); Anion Gap 9.2 mmol/L (3-11); BUN 18 mg/dL (7-18); Bilirubin, Total 1.5 mg/dL (0.2-1.0); CO2 30.8 mmol/L (21.0-32.0); Calcium 9.3 mg/dL (8.5-10.1); Chloride 98 mmol/L (98-107); Glucose 122 mg/dL (74-106); Magnesium 1.5 mg/dL (1.8-2.4); NT-proBNP 882 pg/mL (<300); Sodium 138 mmol/L (136-145); Total Protein 6.9 g/dL (6.4-8.2)
[2021-12-28 22:42] LABS: PSA, Diagnostic 1.4 ng/mL (0.0-6.5)
== END 2021-12-28 02:54 | disposition home or self-care (01) ==
LOC: LBO 02:53
PROVIDERS: PCP Family Medicine; Visit Provider Internal Medicine Cardiovascular Disease
DX: N40.0 Benign prostatic hyperplasia without lower urinary tract symptoms (principal); I10 Essential (primary) hypertension; I48.20 Chronic atrial fibrillation, unspecified; I25.5 Ischemic cardiomyopathy; I50.22 Chronic systolic (congestive) heart failure
CPT/HCPCS: 36415; 80053; 85027; 83735; 83880; 84153; 85025

== ENCOUNTER 2022-03-12 04:53 | Outpatient (CLI) | payer MEDICARE, OTHER, SELFPAY ==
[2022-03-12 12:25] LABS: HCT 41.7 % (40.0-50.0); HGB 14.1 g/dL (13.5-17.5); MCH 32.6 pg (27.0-33.0); MCHC 33.8 % (32.0-36.0); MCV 96.3 fL (80-95); MPV 10.1 fL (8.0-11.0); Platelet Count 207 10^3/uL (130-400); RBC 4.33 10^6/uL (4.36-5.78); RDW 13.2 % (11.8-14.1); RDW-SD 46.6 fL; WBC 6.83 10^3/uL (4.4-10.8)
[2022-03-12 12:38] LABS: Hemoglobin A1C 6.3 % (<5.7)
[2022-03-12 12:58] LABS: ALT 22 U/L (16-63); AST 17 U/L (15-37); Albumin 3.4 g/dL (3.4-5.0); Alkaline Phosphatase 68 U/L (46-116); Anion Gap 8.9 mmol/L (3-11); BUN 13 mg/dL (7-18); Bilirubin, Total 1.2 mg/dL (0.2-1.0); CO2 33.1 mmol/L (21.0-32.0); CREATININE 0.9 mg/dL (0.70-1.30); Calcium 8.9 mg/dL (8.5-10.1); Chloride 102 mmol/L (98-107); Glucose 137 mg/dL (74-106); Potassium 3.2 mmol/L (3.5-5.1); Sodium 144 mmol/L (136-145); Total Protein 6.2 g/dL (6.4-8.2); Vitamin B12 408 pg/mL (193-986)
[2022-03-12 23:02] LABS: PSA, Diagnostic 1.3 ng/mL (<=6.5)
== END 2022-03-12 04:54 | disposition home or self-care (01) ==
PROVIDERS: PCP Family Medicine; Visit Provider Family Medicine
DX: I48.20 Chronic atrial fibrillation, unspecified (principal); N40.0 Benign prostatic hyperplasia without lower urinary tract symptoms; I10 Essential (primary) hypertension; Z72.89 Other problems related to lifestyle; E11.9 Type 2 diabetes mellitus without complications; G56.10 Other lesions of median nerve, unspecified upper limb; Z79.899 Other long term (current) drug therapy
CPT/HCPCS: 36415; 80053; 85027; 82607; 83036; 84153; 84443

== ENCOUNTER → 2022-05-08 13:39 | Outpatient (BNVA) | payer MEDICARE, OTHER, SELFPAY | PROVIDERS: PCP Family Medicine; Referring Provider Family Medicine; Visit Provider Nurse Practitioner Adult Health | DX: G56.03 Carpal tunnel syndrome, bilateral upper limbs (principal); G56.23 Lesion of ulnar nerve, bilateral upper limbs | CPT/HCPCS: 95910; 99203; 99204 ==

== ENCOUNTER → 2022-06-18 14:05 | Outpatient (BNVA) | payer MEDICARE, OTHER, SELFPAY | PROVIDERS: PCP Family Medicine; Referring Provider Nurse Practitioner Adult Health; Visit Provider Student in an Organized Health Care Education/Training Program | DX: M62.541 Muscle wasting and atrophy, not elsewhere classified, right hand (principal); M62.542 Muscle wasting and atrophy, not elsewhere classified, left hand; I50.22 Chronic systolic (congestive) heart failure; Z95.1 Presence of aortocoronary bypass graft; G56.03 Carpal tunnel syndrome, bilateral upper limbs | CPT/HCPCS: 99213 ==

== ENCOUNTER → 2022-08-06 02:30 | Outpatient (CLI) | payer MEDICARE, OTHER, SELFPAY ==
--- NOTE | 2022-08-06 14:04 | DI.US_ITS ---
APPROVED REPORT EXAM: Comprehensive 2D, Doppler, and color-flow Echocardiogram Patient Location: Out-Patient Trainmaster: Eloina Barraza RDCS (AE) Indications: Low EF, CAD Other Information Study Quality: Adequate Conclusion Normal left ventricular chamber size. Mid septum is thickened. EF is 40%. There are wall motion ab normalities of the apex and anteroapical segments Normal right ventricular size and systolic function Device lead noted in the right heart The left atrium is mildly dilated. The right atrium is normal in size Aortic valve is sclerotic and trileaflet with mild regurgitation Mild mitral annular calcification. Mildly thickened mitral leaflets. Moderate mitral regurgitation Normal tricuspid valve with trace regurgitation. Estimated right ventricular systolic pressure is 30 mmHg Mildly dilated ascending aorta Wall motion Left Ventricle Left ventricle is moderately dilated. Left ventricular systolic function is moderate to severely decr eased. Asymmetric septal thickening is noted. Apical and anteroapical wall motion abnormality There i s no ventricular septal defect visualized. LVEF is 40%. Right Ventricle Right ventricle is grossly normal in size. Right ventricular systolic function is grossly normal. The RVSP is 30.4 mmHg. Device lead is present in the right ventricle. Atria Left atrium is mildly dilated. The right atrium size is normal. The interatrial septum is intact with no evidence for an atrial septal defect. Aortic Valve The Aortic valve is sclerotic. Aortic valve is trileaflet. There is no aortic valvular stenosis. Mild aortic regurgitation. Mitral Valve Mild mitral annular calcification. Thickened mitral leaflets No evidence of mitral valve stenosis. Mo derate mitral regurgitation. Tricuspid Valve The tricuspid valve is normal in structure. There is no tricuspid valve stenosis. Trace tricuspid reg urgitation. Pulmonic Valve The pulmonary valve is normal in structure. There is no pulmonic valvular stenosis. Mild pulmonic reg urgitation. Great Vessels The aortic root is normal in size. The ascending aorta is mildly dilated. Aortic arch is not well vis ualized. IVC is normal in size and collapses >50% with inspiration. Pericardium There is no pericardial effusion. 2D Dimensions IVSD d PLAX 1.26 cm M: 0.6-1.2 LV Vol A2C d MOD 164.6 mL LVPW d PLAX 0.99 cm M: 0.6 - 1.2 LV Vol A4C d MOD 107.0 mL LVID d PLAX 6.63 cm M: 4.2 - 5.8 LA vol/ BSA A2C s A-L 22.7 mL/m2 LVDs 5.35 cm M: 2.5 - 4.0 LA vol/ BSA A4C s A-L 36.4 mL/m2 Ao Root d 3.27 cm M: 3.1 - 3.7 LA Vol/ BSA Biplane s A-L 31.3 mL/m2 RA Area A4C 20.62 cm2 LA Area A4C s MOD 23.66 cm2 RA Vol/ BSA A4C s A-L 34.7 mL/m2 LA Area A2C s MOD 17.19 cm2 Ao Asc Diam d 3.63 cm M: 2.6 - 3.4 LV EF A4C MOD 35.7 % LV EF Teichholz 38.6 % LV EF A2C MOD 35.8 % LVEF (Cohen's) 39.75 % M: 52 - 72 LV EF Biplane MOD 39.8 % LV Volume 110.57 mL M: 62 - 150 SV 58.56 mL LV Volume Index 55.56 mL/m2 M: 34 - 74 SV Index 29.34 mL/m2 LV Vol Biplane MOD 147.3 mL FS 19.15 % M-Mode TAPSE 0.80 cm (M/F) >1.7 LV Diastology MV E' lateral 0.133 (>0.1 m/s) MV E Vmax 0.83 (0.4-1.3 m/s) LV E/e LAT 6.25 (<14) MV E/E' lateral 6.27 Aortic Valve LVOT Area 3.90 cm2 AoV Area Vmax 2.95 cm2 LVOT Vmax 0.90 m/s AoV Area/ BSA (Vmax) 1.48 cm2/m2 LVOT Mean Jasvir. 0.64 m/s NEENA Mean Jasvir. 2.83 cm2 LVOT Peak Grad 3.3 mmHg NEENA Mean Jasvir. Index 1.42 cm2/m2 LVOT Mean Grad 1.9 mmHg LVOT VTI 0.142 m LVOT Diam s 2.20 cm AoV Vmax 1.20 m/s Velocity Ratio 0.75 AoV Mean Jasvir. 0.88 m/s AoV Peak Grad 5.7 mmHg LVOT SV 55.47 mL AoV Mean Grad 3.4 mmHg AoV VTI 0.201 m AoV Area VTI 2.76 cm2 AoV Area/ BSA (VTI) 1.38 cm/m2 Mitral Valve MV DT 197 (160-240 msec) MV PHT 57 msec MV Area PHT 3.85 cm2 MV VTI 0.190 m MV Area VTI 2.92 (4.0-6.0 cm2) Pulmonary Valve PV Vmax 1.10 (0.5-1.5 m/s) RVOT Peak Gr. 1.06 mmHg PV Peak Grad 4.8 mmHg RVOT Mean Gr. 0.50 mmHg PV Mean Grad 2.0 mmHg RVOT VTI 0.075 m PV VTI 0.188 m RVOT Vmax 0.51 m/s Tricuspid Valve TR Peak Grad 27.3 mmHg TR Vmax 2.62 m/s RA Pressure 3.00 mmHg RVSP (TR) 30.4 mmHg
== END ==
PROVIDERS: PCP Family Medicine; Visit Provider Family Medicine
DX: I25.10 Atherosclerotic heart disease of native coronary artery without angina pectoris (principal); R63.4 Abnormal weight loss; R94.30 Abnormal result of cardiovascular function study, unspecified
CPT/HCPCS: 93306

== ENCOUNTER 2022-08-14 06:07 | Day surgery (SDC) | payer MEDICARE, OTHER, SELFPAY ==
[2022-08-14 06:14] VITALS: BP 132/91; PULSE 76; RESP 17; TEMP 36.5; O2SAT 97
--- NOTE | 2022-08-14 06:44 | ANES.PREOP_ITS ---
General Info Date of Service Date Performed: 08/14/22 Height: 5 ft 9.5 in Weight: 83.4 kg Body Mass Index (BMI): 26.7 Surgical Procedure: Operation Date: 08/14/22 07:40 Proposed Procedure Side Surgeon p Wrist ECTR Right Dandy Avila MD Meds Allergies and Home Medications Allergies Allergy/AdvReac Type Severity Reaction Status Date / Time niacin AdvReac Intermediate GETS HOT Verified 08/14/22 06:26 AND RED ALL OVER Lcjszes-CGM-KrO Reductase AdvReac Intermediate FEELS Verified 08/14/22 06:26 Inhibitor ROTTEN [Wnfkflx-Gzq-Rmh Reductase Inhibitor] Home Medication Medication Instructions Recorded aspirin 81 mg chewable tablet 1 tab.chew PO DAILY 03/23/13 (Aspirin Low-Strength) cholecalciferol (vitamin D3) 25 1 cap PO DAILY 03/23/13 mcg (1,000 unit) capsule multivitamin 1 ea PO DAILY 03/23/13 sildenafil 100 mg tablet 100 mg PO DAILY PRN sexual 01/05/21 activity #10 tabs apixaban 5 mg tablet (Eliquis) 5 mg PO BID #180 tabs 01/02/22 carvedilol 25 mg tablet 25 mg PO BID #180 tabs 02/05/22 tamsulosin 0.4 mg capsule 0.4 mg PO QHS #90 caps 02/12/22 potassium chloride 20 mEq 20 meq PO DAILY #90 tabs 03/12/22 tablet,extended release furosemide 40 mg tablet 60 mg PO QAM #135 tabs 05/22/22 prednisone 10 mg tablet 10 mg PO DAILY PRN spinal stenosis 05/22/22 #90 tab-caps Current Visit Medications: Current Medications Generic Name Dose Route Start Last Admin Trade Name Freq PRN Reason Stop Dose Admin Ringer's Solution 1,000 mls @ 80 mls/hr 08/14/22 06:00 IV 09/12/22 23:59 INFUSION SARAH Cefazolin Sodium/Dextrose 2 gm in 50 mls @ 100 mls/hr 08/14/22 06:00 Ancef Duplex IVPB 08/14/22 16:00 PREOP SARAH IV Miscellaneous Supplies 1 each 08/14/22 06:00 Iv Access IV 09/12/22 23:59 DIRECTED SARAH Sodium Chloride 0 ml 08/14/22 06:00 Normal Saline Flush 10 Ml Syr IV 09/12/22 23:59 PRN PRN Sodium Chloride 0 ml 08/14/22 06:00 Normal Saline 10 Ml Vial IJ 09/12/22 23:59 DIRECTED PRN Sterile Water 0 ml 08/14/22 06:00 Water,Injection,Sterile 10 Ml Vial IJ 09/12/22 23:59 DIRECTED PRN PFSH Active Problems Active Problems: Problem Status Onset Code Alcohol intake above recommended sensible limits Z72.89 Anticoagulant long-term use 08/16/17 Z79.01 Benign prostatic hyperplasia N40.0 Bilateral foot pain 10/31/17 M79.671, M79.672 Coronary atherosclerosis of [place] coronary vessel I25.10 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/25/16 H71.20 Chronic systolic CHF, NYHA class 2 and LINDSEY/AHA stage C 08/16/17 I50.22 Essential hypertension 07/27/16 I10 Gout M10.9 Irreducible epigastric hernia K43.6 Ischemic cardiomyopathy 11/09/16 I25.5 S/P ICD (internal cardiac defibrillator) procedure 06/24/17 Z95.810 Spinal stenosis of lumbar region at multiple levels 07/12/15 M48.061 History of tobacco use Z87.891 History of coronary artery bypass surgery Z95.1 Chronic atrial fibrillation I48.2 Sebaceous cyst L72.3 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 Will need to stop Eliquis 5 days prior to surgery, take care in positioning pt during surgery due to recent back surgery, and he will notify if he develops URI or rash. Otherwise cleared for surgery. Surgical History Surgical History (Updated 08/14/22 @ 06:25 by Keira Bruno RN) History of back surgery Pacemaker (06/19/17) PROCEDURES AORTOCORONARY BYPASS Tobacco Smoking/Tobacco Use Status: Former Tobacco Use Passive smoking exposure: Yes Second hand exposure: Yes Alcohol Alcohol Intake: current Alcohol intake frequency: 3 or more drinks per day Details: significantly higher alcohol use in the past Substance Use Substance use: Never Substance use type: does not use Vital Signs and Lab Results Vital Signs Most Recent Vital Signs in EMR: Most Recent Vital Signs Temp Pulse Resp BP Pulse Ox 36.5 C 76 17 132/91 H 97 08/14/22 06:14 08/14/22 06:14 08/14/22 06:14 08/14/22 06:14 08/14/22 06:14 Lab Results Blood Type / Crossmatch: No Data to Display Complete Blood Count: No Data to Display Complete Metabolic Panel: No Data to Display Liver Function Panel: No Data to Display Coagulation Panel: No Data to Display Cardiac Panel: No Data to Display Arterial Blood Gas: No Data to Display Venous Blood Gas: No Data to Display Pancreas Panel: No Data to Display Thyroid Panel: No Data to Display Infectious Disease: No Data to Display Blood Cultures: No Data to Display Toxicology Panel: No Data to Display Anesthesia Assessment and Plan Anesthesia History Personal History: No History of Anesthesia Complications Family History: No Family History of Anesthesia Complications Exercise Tolerance Exercise Tolerance: Metabolic Equivalents<4 Pertinent Negatives Pertinent Negatives: No Symptoms of GERD, No Major Cardiovascular Symptoms or Complaints, No Major Pulmonary Symptoms or Complaints and No History of CVA/TIA Cardiac & Pulmonary Exam Cardiac Exam: Normal S1/S2 Heart Sounds Pulmonary Exam: Clear Bilateral Breath Sounds Implantable Cardiac Device Does patient have a Pacemaker or an ICD?: Yes Device Amortization Schedule Clerk:: [employer] MRI Quad [id number] Reason for Placement:: High degree AV block, bradycardia Date of Last Device Interrogation:: 07/24/22 Airway Exam Known Difficult Airway: No Mallampati Class: 3 Mouth Opening: Normal (> 3cm) Thyromental Distance: Greater than 3 cm Facial Hair: Full Perdomo (mustache) Neck Range of Motion: Full ROM Neck Circumference: Normal Teeth Condition: Normal Dentition ASA Classification ASA Score: ASA 3 Emergency Case?: No NPO Status NPO Status: NPO Clears >2 hours, Solids >8 hours Anesthesia Plan Resuscitation Status: Full Code Anesthesia Technique: General Anesthesia Airway Planned: Natural Airway Monitors Used: Standard Monitors
[2022-08-14] MEDS: Lactated Ringers 1,000 ML 80 ML IV (06:48)
--- NOTE | 2022-08-14 07:11 | W.PM.DSUDISC ---
Discharge Plan Disposition Patient Disposition: HOME Condition: Good Discharge Details Reason For Visit: Right carpal tunnel syndrome Attending Provider: Dandy Avila Primary Care Provider: Isabel Maciel Home Meds and New Rx's Prescriptions: New acetaminophen 500 mg tablet 500 mg PO Q6H PRN (Reason: pain) Qty: 60 2RF Continued furosemide 40 mg tablet 60 mg PO QAM Qty: 135 4RF prednisone 10 mg tablet 10 mg PO DAILY PRN (Reason: spinal stenosis) Qty: 90 1RF sildenafil 100 mg tablet 100 mg PO DAILY PRN (Reason: sexual activity) Qty: 10 8RF Rx Instructions: administer 30 minutes to 4 hours before activity carvedilol 25 mg tablet 25 mg PO BID Qty: 180 6RF multivitamin 1 EACH tablet 1 ea PO DAILY aspirin [Aspirin Low-Strength] 81 MG tablet,chewable 1 tab.chew PO DAILY cholecalciferol (vitamin D3) 1,000 UNIT capsule 1 cap PO DAILY Eliquis 5 mg tablet 5 mg PO BID Qty: 180 12RF tamsulosin 0.4 mg capsule 0.4 mg PO QHS Qty: 90 6RF potassium chloride 20 mEq tablet extended release 20 meq PO DAILY Qty: 90 5RF Discharge Instructions Stand Alone Forms: Margarita Velasquez Tunnel Release Referrals: Dandy Avila MD [ [facility] STAFF PHYSICIAN] - Activity:: Elevate Remove Dressings/Wound Care:: 48 hours Shower/Bathe:: 48 hours Diet:: As Tolerated Discharge Orders Discharge Orders: Discharge Order (Routine); Ordered 08/14/22 Ordered By: Eileen Medina
[2022-08-14 07:12] VITALS: BMI 26.7
--- NOTE | 2022-08-14 07:21 | HPE_ITS ---
Assessment and Plan Assessment and plan (1) Bilateral carpal tunnel syndrome: Status: Acute Assessment and plan: Fabian is a 77-year-old with severe carpal tunnel of both hands. Please see the previous office note for complete detailed history. He is here today for bilateral carpal tunnel releases. We will start with the right side today and proceed the left side another week. I reviewed the surgery with him in detail. I discussed the technical details of carpal tunnel release and that I perform an endoscopic release, but would make a larger, open, incision if necessary for visualization. I discussed the risks of the procedure to include, but not limited to, bleeding, infection, palmar pain, stiffness, damage to nerves, damage to vessels, damage to tendons, weakness, recurrence, and incomplete release. Given these risks, Fabian desires to proceed. History of Present Illness History of Present Illness Chief Complaint: Bilateral carpal tunnel syndrome Narrative: Fabian is a 77-year-old [id number] male who has bilateral hand numbness and tingling. He is most affected on the right side but is present on the left side as well. He has had continued decline of the function of his hand and had recent infectious studies which proved the diagnosis of carpal tunnel. Please see the previous office note for complete detailed history. He denies any active chest pain or shortness of breath. He does have notable congestive heart failure with decreased ejection fracture and longstanding anticoagulant use for atrial fibrillation. However, this is largely unchanged. PFSH All Active Problems Alcohol intake above recommended sensible limits (Chronic) Anticoagulant long-term use (Chronic 08/16/17) Benign prostatic hyperplasia (Chronic) Bilateral foot pain (Chronic 10/31/17) Coronary atherosclerosis of [place] coronary vessel (Chronic) S/P CABG declines medication 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) [facility]- Chronic systolic CHF, NYHA class 2 and LINDSE[place]/AHA stage C (Chronic 08/16/17) Essential hypertension (Chronic 07/27/16) Gout (Chronic) Irreducible epigastric hernia (Chronic) Ischemic cardiomyopathy (Chronic 11/09/16) S/P ICD (internal cardiac defibrillator) procedure (Chronic 06/24/17) low ef Spinal stenosis of lumbar region at multiple levels (Chronic 07/12/15) History of coronary artery bypass surgery (Chronic) Chronic atrial fibrillation (Acute) Sebaceous cyst (Acute) Median nerve dysfunction (Acute) Weight loss (Acute) Bilateral carpal tunnel syndrome (Acute) Cubital tunnel syndrome, bilateral (Acute) Low left ventricular ejection fraction (Acute) Medical History Atrial tachycardia (08/16/17) Disorder of lung lung infiltrate; question of aspiration long antibx couse Dario hematuria Pre-operative examination See attached sheets. Will need to stop Eliquis 5 days prior to surgery, take care in positioning pt during surgery due to recent back surgery, and he will notify if he develops URI or rash. Otherwise cleared for surgery. Surgical History History of back surgery Pacemaker (06/19/17) PROCEDURES AORTOCORONARY BYPASS Family History Mother Brain cancer Father Heart disease CHF Sister No problems noted. Brother No problems noted. Maternal Grandfather Cancer Paternal Grandfather No problems noted. Maternal Grandmother No problems noted. Paternal Grandmother Heart disease Sister No problems noted. Brother No problems noted. Son Depression Heart disease [place] at 38, 6 stents Daughter No problems noted. Social History Smoking/Tobacco Use Status: Former Tobacco Use Quit Date: 11/18/87 Tobacco: How many years used: 40 Second Hand Exposure: Yes Smoking risk assessment performed?: Yes Alcohol Intake: current Alcohol Intake frequency: 3 or more drinks per day Details: significantly higher alcohol use in the past Drug use: Never Substance use type: does not use Household members: spouse Housing: house Communication Needs: None Do you need help understanding health information?: Rarely Pets and animals: Yes Pets and animals: dog(s) Sexually active: No Do you think of yourself as: straight/heterosexual Current gender identity: male What is your relationship status?: How often do you talk on the phone with friends or family?: three or more times per week How often do you get together with friends or relatives?: three or more times per week How often do you attend mormon or christianity services?: 1-3 times per year Do you belong to any clubs or organized social groups?: no Panel score (0-1 are the most socially isolated patients): 2 What type of physical activity do you participate in: other Duration: decline to answer Frequency: decline to answer Azul/Yarsani: Hindu Special azul needs: No Seatbelt use: never Helmet use: No Drive intox or ride w/intox armor reconnaissance vehicle driver: No Do you feel safe at home: Yes Do you feel safe in your relationship?: Yes Meds Allergies and Home Medications Allergies Allergy/AdvReac Type Severity Reaction Status Date / Time niacin AdvReac Intermediate GETS HOT Verified 08/14/22 06:26 AND RED ALL OVER Gqfvuze-RVC-SfQ Reductase AdvReac Intermediate FEELS Verified 08/14/22 06:26 Inhibitor ROTTEN [Tpzkiss-Ksw-Cep Reductase Inhibitor] Home Medications Medication Instructions Recorded Confirmed Type aspirin 81 mg chewable tablet 1 tab.chew PO DAILY 03/23/13 08/14/22 History (Aspirin Low-Strength) cholecalciferol (vitamin D3) 25 1 cap PO DAILY 03/23/13 08/14/22 History mcg (1,000 unit) capsule multivitamin 1 ea PO DAILY 03/23/13 08/14/22 History sildenafil 100 mg tablet 100 mg PO DAILY PRN sexual 01/05/21 08/14/22 Rx activity #10 tabs apixaban 5 mg tablet (Eliquis) 5 mg PO BID #180 tabs 01/02/22 08/14/22 Rx carvedilol 25 mg tablet 25 mg PO BID #180 tabs 02/05/22 08/14/22 Rx tamsulosin 0.4 mg capsule 0.4 mg PO QHS #90 caps 02/12/22 08/14/22 Rx potassium chloride 20 mEq 20 meq PO DAILY #90 tabs 03/12/22 08/14/22 Rx tablet,extended release furosemide 40 mg tablet 60 mg PO QAM #135 tabs 05/22/22 08/14/22 Rx prednisone 10 mg tablet 10 mg PO DAILY PRN spinal stenosis 05/22/22 08/14/22 Rx #90 tab-caps acetaminophen 500 mg tablet 500 mg PO Q6H PRN pain #60 tabs 08/14/22 Rx Exam Resp Auscultation: clear to auscultation bilaterally Cardio Rate: regular rate Rhythm: abnormal rhythm Results Last Vital Signs Temp 36.5 C 08/14/22 06:14 Pulse 76 08/14/22 06:14 Resp 17 08/14/22 06:14 BP 132/91 H 08/14/22 06:14 Pulse Ox 97 08/14/22 06:14
[2022-08-14] MEDS: ceFAZolin 2 GM/50 ML BAG IVPB (07:27)
[2022-08-14] MEDS: Lidocaine 1% Multi-Dose W/EPI 1/100,000 50 ML VIAL (07:35)
[2022-08-14 07:48] VITALS: BP 125/94; PULSE 70; RESP 17; TEMP 36.5; O2SAT 94
--- NOTE | 2022-08-14 08:11 | W.ANESPOSTOP ---
Postoperative Evaluation Date, Time and Location Date Performed: 08/14/22 Time Performed: 08:11 Patient Location: Day Surgery Unit Vital Signs Most Recent Imported Vital Signs: Most Recent Vital Signs Temp Pulse Resp BP Pulse Ox 36.5 C 70 17 125/94 H 94 08/14/22 07:48 08/14/22 07:48 08/14/22 07:48 08/14/22 07:48 08/14/22 07:48 Pain Score Most Recent Pain Score: Most Recent Pain Score Pain Level 0 08/14/22 07:48 Assessment Mental Status: Awake (Alert & Oriented to Patient Baseline) Airway and Respiratory Function: Patent airway with normal (patient baseline) respiratory exam Cardiovascular Function: Hemodynamically Stable Hydration Status: Adequately Hydrated Nausea & Vomiting: No Nausea or Vomiting Pain: Pt. Denies Any Pain Peripheral Nerve Block: Patient did not receive a nerve block
[2022-08-14 08:16] VITALS: BP 123/92; PULSE 70; RESP 18; TEMP 36.7; O2SAT 94
--- NOTE | 2022-08-14 21:58 | ROE_ITS ---
Date of service: 08/14/22 Time of Service: 07:40 Operative Note Operative Note DATE OF PROCEDURE: 08/14/22 PRE-OP DIAGNOSIS: Right Carpal Tunnel Syndrome POST-OP DIAGNOSIS: same PROCEDURE: Right Endoscopic Carpal Tunnel Release SURGEON: Dandy Avila ANESTHESIA TYPE: General:No Airway Refer to Anesthesia Record ESTIMATED BLOOD LOSS: 0 PATHOLOGY: none sent TOURNIQUET TIME: 6 COMPLICATIONS: None Patient was transported to: same day Patient's condition: stable Indications: I have seen Fabian in clinic for symptoms of carpal tunnel syndrome. The numbness, tingling, and pain limited function. Clinical exam findings with nerve conduction tests confirmed the diagnosis of carpal tunnel syndrome. Nonoperative measures such as bracing, time, activity modifications had been tried but disability and pain persisted. I discussed carpal tunnel release with the patient. I reviewed the risks of the procedure to include, but not limited to, bleeding, infection, pain, stiffness, incomplete release, damage to nerves or vessels, persistent numbness, recurrence. Despite these risks, the patient elected to proceed. Findings: There was tightened carpal tunnel with a significant amount of fluid within the carpal tunnel. This was dilated and released successfully with the endoscopic with increased space within the tunnel. The antebrachial fascia was released proximally freeing the median nerve at the wrist. Procedure Description: Fabian was greeted in the preoperative holding area where the correct side was identified and marked. The consent was reviewed with the patient and signed. The history and physical was updated. All questions were answered. She was taken back to the operating room. The patient was placed into the supine position on the operating room table with the right arm on an arm board. A nonsterile tourniquet was placed high onto the arm. All bony prominences were well padded. Prophylactic antibiotics in the form of Cefazolin were administered. The right arm was then prepped with Chloraprep and draped in a standard fashion with stockinette and extremity drape. A timeout to confirm correct identity, side and site, procedure, allergies, anesthesia, and medical concerns was performed. The surgical site was marked in the volar wrist creases in line with the radial border of the fourth ray. This area was anesthetized with approximately 6cc of 1% Lidocaine. The limb was then exsanguinated with an Esmarch. The skin was incised with a 15 blade, approximately 1cm. The skin only was cut and the deeper tissue was dissected bluntly with a tenotomy scissor, avoiding passing ne rve and venous structures. The fascia was penetrated and opened bluntly. A two-prong skin hook was placed under this proximal fascial edge. A series of hamate finders were used to identify and dilate the carpal tunnel. Synovial elevator was used to free synovial attachments to the underside of the transverse carpal ligament. My thumb was kept in the palm to heather the distal extent of the carpal tunnel and correctly position the hand. The Microaire endoscope was inserted without difficulty and without resistance. Excellent visualization showed horizontally running fibers of the transverse carpal ligament (TCL). The distal extent of the TCL was visualized and the end of the scope palpated with the thumb. The blade was elevated and withdrawn from distal to proximal. The TCL was split into two flaps. The endoscope was reinserted to confirm complete release and any remnant ligament was incised. The scope was withdrawn and the proximal aspect of the carpal tunnel was grossly inspected and appeared release with the median nerve visible. The antebrachial fascia at the level of the wrist was then freed from the overlying skin and then the underlying median nerve with blunt dissection. This was transected longitudinally for about 3cm proximal to the wrist incision. The wound was then irrigated with easy flow of irrigant distally and proximally. The incision was closed with a single 4-0 Nylon suture. The wound was dressed with Xeroform, Gauze, Kerlix and Dom. The tourniquet was deflated with the initial dressing and held with some pressure. Blood flow returned easily to all digits with capillary refill less than 2 seconds. The patient tolerated the procedure well and was returned to the Same Day Surgery area in a stable condition suffering no known complication.
== END 2022-08-14 08:35 | disposition home or self-care (01) ==
PROVIDERS: PCP Family Medicine; Visit Provider Student in an Organized Health Care Education/Training Program
PROC: 01N54ZZ Release Median Nerve, Percutaneous Endoscopic Approach (ICD-10-PCS; CPT 29848; principal; 2022-08-14 07:30)
DX: G56.01 Carpal tunnel syndrome, right upper limb (principal); I25.10 Atherosclerotic heart disease of native coronary artery without angina pectoris; I10 Essential (primary) hypertension
CPT/HCPCS: 29848; J0690; J1885; J2704; J3010

== ENCOUNTER → 2022-08-23 11:08 | Outpatient (BNVA) | payer MEDICARE, OTHER, SELFPAY | PROVIDERS: PCP Family Medicine; Referring Provider Family Medicine; Visit Provider Student in an Organized Health Care Education/Training Program | DX: Z47.89 Encounter for other orthopedic aftercare (principal); G56.03 Carpal tunnel syndrome, bilateral upper limbs ==

== ENCOUNTER 2022-08-28 06:13 | Day surgery (SDC) | payer MEDICARE, OTHER, SELFPAY ==
--- NOTE | 2022-08-28 06:10 | W.PM.DSUDISC ---
Discharge Plan Disposition Patient Disposition: HOME Condition: Good Discharge Details Reason For Visit: ECTR Attending Provider: Dandy Avila Primary Care Provider: Isabel Maciel Home Meds and New Rx's Prescriptions: Continued furosemide 40 mg tablet 60 mg PO QAM Qty: 135 4RF prednisone 10 mg tablet 10 mg PO DAILY PRN (Reason: spinal stenosis) Qty: 90 1RF sildenafil 100 mg tablet 100 mg PO DAILY PRN (Reason: sexual activity) Qty: 10 8RF Rx Instructions: administer 30 minutes to 4 hours before activity carvedilol 25 mg tablet 25 mg PO BID Qty: 180 6RF multivitamin 1 EACH tablet 1 ea PO DAILY aspirin [Aspirin Low-Strength] 81 MG tablet,chewable 1 tab.chew PO DAILY cholecalciferol (vitamin D3) 1,000 UNIT capsule 1 cap PO DAILY Eliquis 5 mg tablet 5 mg PO BID Qty: 180 12RF tamsulosin 0.4 mg capsule 0.4 mg PO QHS Qty: 90 6RF potassium chloride 20 mEq tablet extended release 20 meq PO DAILY Qty: 90 5RF acetaminophen 500 mg tablet 500 mg PO Q6H PRN (Reason: pain) Qty: 60 2RF Discharge Instructions Additional Instructions: You may resume your Eliquis tonight. Use ice and Acetaminophen for primary pain control. Stand Alone Forms: Margairta Velasquez Tunnel Release Referrals: Dandy Avila MD [ [facility] STAFF PHYSICIAN] - Activity:: Activity as Tolerated Remove Dressings/Wound Care:: 72 hours Shower/Bathe:: 72 hours Diet:: As Tolerated Discharge Orders Discharge Orders: Discharge Order (Routine); Ordered 08/28/22 Ordered By: Brea Callejas DS: Diagnosis Discharge Diagnosis (1) Bilateral carpal tunnel syndrome: Status: Acute
[2022-08-28 06:32] VITALS: BP 125/91; PULSE 71; RESP 16; TEMP 36.5; O2SAT 97
[2022-08-28] MEDS: ceFAZolin 2 GM/50 ML BAG IVPB (07:00)
--- NOTE | 2022-08-28 07:07 | ANES.PREOP_ITS ---
General Info Date of Service Date Performed: 08/28/22 Height: 5 ft 9.5 in Weight: 81 kg Body Mass Index (BMI): 25.9 Surgical Procedure: Operation Date: 08/28/22 07:40 Proposed Procedure Side Surgeon p Wrist ECTR Left Dandy Avila MD Meds Allergies and Home Medications Allergies Allergy/AdvReac Type Severity Reaction Status Date / Time niacin AdvReac Intermediate GETS HOT Verified 08/28/22 06:29 AND RED ALL OVER Sisiubn-EDS-BoB Reductase AdvReac Intermediate FEELS Verified 08/28/22 06:29 Inhibitor ROTTEN [Yjqbruu-Rfr-Uew Reductase Inhibitor] Home Medication Medication Instructions Recorded aspirin 81 mg chewable tablet 1 tab.chew PO DAILY 03/23/13 (Aspirin Low-Strength) cholecalciferol (vitamin D3) 25 1 cap PO DAILY 03/23/13 mcg (1,000 unit) capsule multivitamin 1 ea PO DAILY 03/23/13 sildenafil 100 mg tablet 100 mg PO DAILY PRN sexual 01/05/21 activity #10 tabs apixaban 5 mg tablet (Eliquis) 5 mg PO BID #180 tabs 01/02/22 carvedilol 25 mg tablet 25 mg PO BID #180 tabs 02/05/22 tamsulosin 0.4 mg capsule 0.4 mg PO QHS #90 caps 02/12/22 potassium chloride 20 mEq 20 meq PO DAILY #90 tabs 03/12/22 tablet,extended release furosemide 40 mg tablet 60 mg PO QAM #135 tabs 05/22/22 prednisone 10 mg tablet 10 mg PO DAILY PRN spinal stenosis 05/22/22 #90 tab-caps acetaminophen 500 mg tablet 500 mg PO Q6H PRN pain #60 tabs 08/28/22 Current Visit Medications: Current Medications Generic Name Dose Route Start Last Admin Trade Name Freq PRN Reason Stop Dose Admin Acetaminophen 650 mg 08/28/22 06:09 Acetaminophen 325 Mg Tab PO Q4H PRN PRN Ringer's Solution 1,000 mls @ 80 mls/hr 08/28/22 06:00 IV 09/26/22 23:59 INFUSION SARAH Cefazolin Sodium/Dextrose 2 gm in 50 mls @ 100 mls/hr 08/28/22 06:00 Ancef Duplex IVPB 09/26/22 23:59 PREOP SARAH Ondansetron HCl 4 mg/ Sodium 52 mls @ 200 mls/hr 08/28/22 06:09 Chloride IVPB Q6H PRN PRN IV Miscellaneous Supplies 1 each 08/28/22 06:00 Iv Access IV 09/26/22 23:59 DIRECTED SARAH Oxycodone HCl 5 mg 08/28/22 06:09 Oxycodone 5 Mg Tab PO Q3H PRN PRN Pain Sodium Chloride 0 ml 08/28/22 06:00 Normal Saline Flush 10 Ml Syr IV 09/26/22 23:59 PRN PRN Sodium Chloride 0 ml 08/28/22 06:00 Normal Saline 10 Ml Vial IJ 09/26/22 23:59 DIRECTED PRN Sterile Water 0 ml 08/28/22 06:00 Water,Injection,Sterile 10 Ml Vial IJ 09/26/22 23:59 DIRECTED PRN PFSH Active Problems Active Problems: Problem Status Onset Code Alcohol intake above recommended sensible limits Z72.89 Anticoagulant long-term use 08/16/17 Z79.01 Benign prostatic hyperplasia N40.0 Bilateral foot pain 10/31/17 M79.671, M79.672 Coronary atherosclerosis of [place] coronary vessel I25.10 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/25/16 H71.20 Chronic systolic CHF, NYHA class 2 and LINDSEY/AHA stage C 08/16/17 I50.22 Essential hypertension 07/27/16 I10 Gout M10.9 Irreducible epigastric hernia K43.6 Ischemic cardiomyopathy 11/09/16 I25.5 S/P ICD (internal cardiac defibrillator) procedure 06/24/17 Z95.810 Spinal stenosis of lumbar region at multiple levels 07/12/15 M48.061 History of tobacco use Z87.891 History of coronary artery bypass surgery Z95.1 Chronic atrial fibrillation I48.2 Sebaceous cyst L72.3 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 Will need to stop Eliquis 5 days prior to surgery, take care in positioning pt during surgery due to recent back surgery, and he will notify if he develops URI or rash. Otherwise cleared for surgery. Medical History Comments:: pacemaler/ICD Surgical History Surgical History (Updated 08/28/22 @ 06:28 by Nicole Garcia) History of back surgery History of carpal tunnel surgery of right wrist 08/09 Pacemaker (06/19/17) PROCEDURES AORTOCORONARY BYPASS Tobacco Smoking/Tobacco Use Status: Former Tobacco Use Passive smoking exposure: Yes Second hand exposure: Yes Alcohol Alcohol Intake: current Alcohol intake frequency: 3 or more drinks per day Details: significantly higher alcohol use in the past Substance Use Substance use: Never Substance use type: does not use Vital Signs and Lab Results Vital Signs Most Recent Vital Signs in EMR: Most Recent Vital Signs Temp Pulse Resp BP Pulse Ox 36.5 C 71 16 125/91 H 97 08/28/22 06:32 08/28/22 06:32 08/28/22 06:32 08/28/22 06:32 08/28/22 06:32 Lab Results Blood Type / Crossmatch: No Data to Display Complete Blood Count: No Data to Display Complete Metabolic Panel: No Data to Display Liver Function Panel: No Data to Display Coagulation Panel: No Data to Display Cardiac Panel: No Data to Display Arterial Blood Gas: No Data to Display Venous Blood Gas: No Data to Display Pancreas Panel: No Data to Display Thyroid Panel: No Data to Display Infectious Disease: No Data to Display Blood Cultures: No Data to Display Toxicology Panel: No Data to Display Anesthesia Assessment and Plan Anesthesia History Personal History: No History of Anesthesia Complications Family History: No Family History of Anesthesia Complications Exercise Tolerance Exercise Tolerance: Metabolic Equivalents<4 Pertinent Negatives Pertinent Negatives: No Symptoms of GERD, No Major Cardiovascular Symptoms or Complaints and No History of CVA/TIA Cardiac & Pulmonary Exam Cardiac Exam: Normal S1/S2 Heart Sounds Pulmonary Exam: Clear Bilateral Breath Sounds Implantable Cardiac Device Does patient have a Pacemaker or an ICD?: Yes 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 Quad CRTD [id number] Reason for Placement:: High AV block Date of Last Device Interrogation:: 07/24/22 Airway Exam Known Difficult Airway: No Mallampati Class: 3 Mouth Opening: Normal (> 3cm) Thyromental Distance: Greater than 3 cm Neck Range of Motion: Full ROM Neck Circumference: Normal Teeth Condition: Normal Dentition and Generalized Poor Dentition ASA Classification ASA Score: ASA 3 Emergency Case?: No NPO Status NPO Status: NPO Clears >2 hours, Solids >8 hours Anesthesia Plan Resuscitation Status: Full Code Anesthesia Technique: General Anesthesia Airway Planned: Natural Airway Monitors Used: Standard Monitors
[2022-08-28] MEDS: Lactated Ringers 1,000 ML 80 ML IV (07:10)
[2022-08-28 07:28] VITALS: BMI 25.9
[2022-08-28] MEDS: Lidocaine 1.5 % Pres-Free W/EPI 1/200,000 30 ML VIAL (07:37)
[2022-08-28 07:51] VITALS: BP 103/76; PULSE 72; RESP 16; TEMP 36.2; O2SAT 94
[2022-08-28 08:20] VITALS: BP 119/82; PULSE 66; RESP 17; TEMP 36.5; O2SAT 95
--- NOTE | 2022-08-28 10:28 | W.ANESPOSTOP ---
Postoperative Evaluation Date, Time and Location Date Performed: 08/28/22 Time Performed: 10:28 Patient Location: Day Surgery Unit Vital Signs Most Recent Imported Vital Signs: Most Recent Vital Signs Temp Pulse Resp BP Pulse Ox 36.5 C 66 17 119/82 95 08/28/22 08:20 08/28/22 08:20 08/28/22 08:20 08/28/22 08:20 08/28/22 08:20 Pain Score Most Recent Pain Score: Most Recent Pain Score Pain Level 0 08/28/22 08:20 Assessment Mental Status: Awake (Alert & Oriented to Patient Baseline) Airway and Respiratory Function: Patent airway with normal (patient baseline) respiratory exam Cardiovascular Function: Hemodynamically Stable Hydration Status: Adequately Hydrated Nausea & Vomiting: No Nausea or Vomiting Pain: Pt. Denies Any Pain Peripheral Nerve Block: Patient did not receive a nerve block Postoperative Comments:: Seen earlier today and doing very well. Denied questions.
--- NOTE | 2022-08-28 21:04 | W.PM.OP ---
Date of service: 08/28/22 Time of Service: 07:45 Operative Note Operative Note DATE OF PROCEDURE: 08/28/22 PRE-OP DIAGNOSIS: Left Carpal Tunnel Syndrome POST-OP DIAGNOSIS: same PROCEDURE: Left Endoscopic Carpal Tunnel Release SURGEON: Dandy Avlia ANESTHESIA TYPE: General:No Airway Refer to Anesthesia Record ESTIMATED BLOOD LOSS: 0 PATHOLOGY: none sent TOURNIQUET TIME: 6 COMPLICATIONS: None Patient was transported to: same day Patient's condition: stable Indications: I have seen Fabian in clinic for symptoms of carpal tunnel syndrome. The numbness, tingling, and pain limited function. Clinical exam findings with nerve conduction tests confirmed the diagnosis of carpal tunnel syndrome. Nonoperative measures such as bracing, time, activity modifications had been tried but disability and pain persisted. I discussed carpal tunnel release with the patient. I reviewed the risks of the procedure to include, but not limited to, bleeding, infection, pain, stiffness, incomplete release, damage to nerves or vessels, persistent numbness, recurrence. Despite these risks, the patient elected to proceed. Findings: There was tightened carpal tunnel. This was dilated and released successfully with the endoscopic with increased space within the tunnel. The antebrachial fascia was released proximally freeing the median nerve at the wrist. Procedure Description: Fabian was greeted in the preoperative holding area where the correct side was identified and marked. The consent was reviewed with the patient and signed. The history and physical was updated. All questions were answered. He was taken back to the operating room. The patient was placed into the supine position on the operating room table with the left arm on an arm board. A nonsterile tourniquet was placed high onto the arm. All bony prominences were well padded. Prophylactic antibiotics in the form of Cefazolin were administered. The left arm was then prepped with Chloraprep and draped in a standard fashion with stockinette and extremity drape. A timeout to confirm correct identity, side and site, procedure, allergies, anesthesia, and medical concerns was performed. The surgical site was marked in the volar wrist creases in line with the radial border of the fourth ray. This area was anesthetized with approximately 6cc of 1% Lidocaine. The limb was then exsanguinated with an Esmarch. The skin was incised with a 15 blade, approximately 1cm. The skin only was cut and the deeper tissue was dissected bluntly with a tenotomy scissor, avoiding passing nerve and venous structures. The fascia was penetrated and opened bluntly. A two-prong skin hook was placed under this proximal fascial edge. A series of hamate finders were used to identify and dilate the carpal tunnel. Synovial elevator was used to free synovial attachments to the underside of the transverse carpal ligament. My thumb was kept in the palm to heather the distal extent of the carpal tunnel and correctly position the hand. The Microaire endoscope was inserted without difficulty and without resistance. Excellent visualization showed horizontally running fibers of the transverse carpal ligament (TCL). The distal extent of the TCL was visualized and the end of the scope palpated with the thumb. The blade was elevated and withdrawn from distal to proximal. The TCL was split into two flaps. The endoscope was reinserted to confirm complete release and any remnant ligament was incised. The scope was withdrawn and the proximal aspect of the carpal tunnel was grossly inspected and appeared release with the median nerve visible. The antebrachial fascia at the level of the wrist was then freed from the overlying skin and then the underlying median nerve with blunt dissection. This was transected longitudinally for about 3cm proximal to the wrist incision. The wound was then irrigated with easy flow of irrigant distally and proximally. The incision was closed with a single 4-0 Nylon suture. The wound was dressed with Xeroform, Gauze, Kerlix and Dom. The tourniquet was deflated with the initial dressing and held with some pressure. Blood flow returned easily to all digits with capillary refill less than 2 seconds. The patient tolerated the procedure well and was returned to the Same Day Surgery area in a stable condition suffering no known complication.
== END 2022-08-28 08:40 | disposition home or self-care (01) ==
PROVIDERS: PCP Family Medicine; Visit Provider Student in an Organized Health Care Education/Training Program
PROC: 01N54ZZ Release Median Nerve, Percutaneous Endoscopic Approach (ICD-10-PCS; CPT 29848; principal; 2022-08-28 07:30)
DX: G56.02 Carpal tunnel syndrome, left upper limb (principal)
CPT/HCPCS: 29848; J0690; J1720; J2405

== ENCOUNTER → 2022-09-06 11:37 | Outpatient (BNVA) | payer MEDICARE, OTHER, SELFPAY | PROVIDERS: PCP Family Medicine; Referring Provider Family Medicine; Visit Provider Student in an Organized Health Care Education/Training Program | DX: Z47.89 Encounter for other orthopedic aftercare (principal); G56.03 Carpal tunnel syndrome, bilateral upper limbs ==

== ENCOUNTER 2023-02-27 12:51 | Outpatient (CLI) | payer MEDICARE, SELFPAY ==
[2023-02-27 12:19] LABS: HCT 42.2 % (40.0-50.0); HGB 14.3 g/dL (13.5-17.5); MCHC 33.9 % (32.0-36.0); MCV 98 fL (80-95); MPV 9.5 fL (8.0-11.0); Platelet Count 209 10^3/uL (130-400); RBC 4.33 10^6/uL (4.36-5.78); RDW 14.5 % (11.8-14.1); RDW-SD 52.1 fL
[2023-02-27 12:51] LABS: ALT 22 U/L (16-63); AST 12 U/L (15-37); Albumin 3.6 g/dL (3.4-5.0); Alkaline Phosphatase 76 U/L (46-116); Anion Gap 6.4 mmol/L (3-11); BUN 16 mg/dL (7-18); Bilirubin, Total 1.4 mg/dL (0.2-1.0); CO2 33.6 mmol/L (21.0-32.0); CREATININE 1.1 mg/dL (0.70-1.30); Calcium 9.8 mg/dL (8.5-10.1); Chloride 101 mmol/L (98-107); Estimated GFR 69.14 (mL/min/1.73m2); Glucose 152 mg/dL (74-106); Potassium 3.7 mmol/L (3.5-5.1); Sodium 141 mmol/L (136-145); Total Protein 6.8 g/dL (6.4-8.2)
[2023-02-27 12:55] LABS: Hemoglobin A1C 5.9 % (<5.7)
[2023-02-27 14:48] LABS: Magnesium 1.5 mg/dL (1.8-2.4)
== END 2023-02-27 12:52 | disposition home or self-care (01) ==
LOC: LBO 12:52
PROVIDERS: PCP Family Medicine; Visit Provider Family Medicine
DX: I10 Essential (primary) hypertension; R73.03 Prediabetes; R63.4 Abnormal weight loss
CPT/HCPCS: 36415; 80053; 85027; 83036; 83735

== ENCOUNTER 2023-04-17 04:43 | Outpatient (CLI) | payer MEDICARE, SELFPAY ==
[2023-04-17 13:50] LABS: HCT 27.5 % (40.0-50.0); HGB 8.8 g/dL (13.5-17.5); MCH 31.1 pg (27.0-33.0); MCV 97 fL (80-95); Platelet Count 307 10^3/uL (130-400); RBC 2.83 10^6/uL (4.36-5.78); RDW 12.7 % (11.8-14.1); RDW-SD 45.5 fL; WBC 6.01 10^3/uL (4.4-10.8)
[2023-04-17 14:17] LABS: Anion Gap 8.8 mmol/L (3-11); BUN 23 mg/dL (7-18); CO2 31.2 mmol/L (21.0-32.0); CREATININE 1.1 mg/dL (0.70-1.30); Calcium 9.2 mg/dL (8.5-10.1); Chloride 101 mmol/L (98-107); Estimated GFR 68.71 (mL/min/1.73m2); Glucose 165 mg/dL (74-106); Magnesium 1.5 mg/dL (1.8-2.4); Sodium 141 mmol/L (136-145)
== END 2023-04-17 04:44 | disposition home or self-care (01) ==
PROVIDERS: PCP Family Medicine; Visit Provider Internal Medicine Cardiovascular Disease
DX: I25.5 Ischemic cardiomyopathy (principal)
CPT/HCPCS: 36415; 80048; 85027; 83735

== ENCOUNTER → 2023-07-16 01:20 | Outpatient (CLI) | payer MEDICARE, MEDICAID, SELFPAY ==
--- NOTE | 2023-07-16 08:45 | DI.CT_ITS ---
Exam(s) CT LUMBAR SPINE WO EXAM: CT LUMBAR SPINE WO CLINICAL HISTORY: ICD in place, SPINAL STENOSIS LUMBAR REGION, Z95.810, M48.061. TECHNIQUE: Imaging Protocol: Axial computed tomography images with coronal and sagittal reformatted images were created and reviewed COMPARISON: CT CT lumbar spine wo from 01/22/2019 FINDINGS: Examination limited by orthopedic hardware at L4 and L5. Bones: The last intervertebral disc space is designated the L5/S1 level for the numbering purpose of this examination. The vertebral body heights are well maintained. Posterior spinal rods and pedicle screws are seen at L4 and L5. There is an anterior wedging deformity of T12 of indeterminate acuity. There is depression of the superior endplate of L2 which is new compared to the most recent examinat ion from 2019. There is stable superior compression deformity of L3. Degenerative changes are prese nt throughout the lumbar spine with endplate osteophytes, disc space narrowing and facet arthrosis. The bones appear osteopenic. T12-L1: No disc herniations or bulges are present. No central spinal canal or neural foraminal steno sis. L1-2: No disc herniations or bulges are present. No central spinal canal or neural foraminal stenosi s. L2-3: There is a diffuse disc bulge. No central spinal canal or neural foraminal stenosis. L3-4: There is a diffuse disc bulge and facet arthropathy. There is mild central spinal canal steno sis. No significant neural foraminal stenosis. L4-5: No disc herniations or bulges are present. No central spinal canal or neural foraminal stenosi s. L5-S1: No disc herniations or bulges are present. No central spinal canal or neural foraminal stenos is. Soft Tissues: The visualized SI joints and sacrum are will maintained. Atherosclerosis of the abdomi nal aorta is noted. IMPRESSION: 1. L4-5 surgery since the prior examination. 2. Multilevel degenerative changes resulting in central spinal canal stenosis at L3-L4. 3. Compression deformities of T12, L2 and L3 of indeterminate acuity. Please correlate clinically. 4. Osteopenia. RADIATION DOSE DELIVERED: 636.8mGy.cm Total DLP 636.8mGy.cm Total DLP DATA REPOSITORY: All CT scans at this facility are submitted to the National Radiology Data Registry (NRDR) Dose Index Registry (DIR) with the [employer] ([employer]). RADIATION OPTIMIZATION: All CT scans at this facility use at least one of these dose optimization te chniques: automated exposure control; mA and/or kV adjustment per patient size (includes targeted exa ms where dose is matched to clinical indication); or iterative reconstruction.
== END ==
PROVIDERS: PCP Family Medicine; Visit Provider Family Medicine
DX: M48.061 Spinal stenosis, lumbar region without neurogenic claudication (principal); Z95.810 Presence of automatic (implantable) cardiac defibrillator; M81.0 Age-related osteoporosis without current pathological fracture
CPT/HCPCS: 72131

== ENCOUNTER 2023-07-28 17:21 | Emergency (ER) | payer MEDICARE, MEDICAID, SELFPAY ==
[2023-07-28 17:27] VITALS: BP 112/70; PULSE 94; RESP 15; TEMP 37.8; O2SAT 93
[2023-07-28 18:03] VITALS: O2SAT 93
[2023-07-28 18:10] VITALS: O2SAT 92
[2023-07-28] MEDS: oxyCODONE 5 mg/Acetaminophen 325 mg TAB 1 TAB PO (18:15)
--- NOTE | 2023-07-28 19:10 | ED.GENADUL_ITS ---
Discharge Plan Disposition Patient Disposition: Home Discharge Details Clinical Impression: Chronic pain with drug dependence, Spinal stenosis of lumbar region at multiple levels, Chronic back pain Primary Care Provider: Isabel Maciel ED Provider: Ugo Price Home Meds and New Rx's Prescriptions: Continued furosemide 40 mg tablet 60 mg PO QAM Qty: 135 4RF tamsulosin 0.4 mg capsule 0.4 mg PO QHS Qty: 90 6RF tramadol 50 mg tablet 50 mg PO TID PRN (Reason: pain) Qty: 21 3RF Xarelto 15 mg tablet 15 mg PO DAILY Qty: 90 5RF Rx Instructions: must administer with evening meal sildenafil 100 mg tablet 100 mg PO DAILY PRN (Reason: sexual activity) Qty: 10 8RF Rx Instructions: administer 30 minutes to 4 hours before activity multivitamin 1 EACH tablet 1 ea PO DAILY aspirin [Aspirin Low-Strength] 81 MG tablet,chewable 1 tab.chew PO DAILY cholecalciferol (vitamin D3) 1,000 UNIT capsule 1 cap PO DAILY prednisone 10 mg tablet 10 mg PO DAILY PRN (Reason: spinal stenosis) Qty: 90 1RF carvedilol 25 mg tablet 25 mg PO BID Qty: 180 6RF potassium chloride 20 mEq tablet extended release 20 meq PO DAILY Qty: 90 5RF indomethacin 25 mg capsule 25 mg PO BID PRN (Reason: pain) Qty: 20 0RF Rx Instructions: Be aware of possible bleeding when using with eliquis. Use for the shortest time possible oxycodone 5 mg tablet 5 mg PO TID MDD 15mg PRN (Reason: pain) Qty: 15 0RF morphine 30 mg tablet extended release 30 mg PO Q12H MDD 60 plus 5-10mg oxycodone Qty: 60 0RF morphine 30 mg tablet extended release 30 mg PO 2XD Patient Comments: 30 mg orally every 12 hours, Max Daily Dose: 60 plus 5-10mg oxycodone acetaminophen 500 mg tablet 500 mg PO Q6H PRN (Reason: pain) Qty: 60 2RF Discharge Instructions Instructions: Chronic Pain (ED) Additional Instructions: Given that your complaints seem to be medication related due to your recent medication changes we did not perform an extensive emergency department work-up. Due to this fact if you have any significant worsening or change in your symptoms or have any other concerns return immediately to the emergency department for further work-up. It is very reassuring that your normally prescribed medications were able to resolve your symptoms quickly and that you return to baseline. It is important that you follow-up with your primary care provider especially if you need any further explanation or changes to your normal medications. Referrals: Isabel Maciel MD, [place] [Primary Care Provider] - (As needed for further discussion of pain management or follow-up) Discharge Data Discharge Date/Time-TO BE ENTERED AT DEPARTURE: 07/28/23 19:15 Medical Decision Making Patient presenting to the emergency department via EMS for chief complaint of lower to mid back pain. Patient reports that he had recent medication change to long-acting morphine but is unsure if he took his medication today. Patient was concerned about taking further narcotics for potential interaction or accidental overdose. Patient states that pain pattern is unchanged from chronic pain, denies any new symptoms, denies any change in symptoms and denies any other symptoms causing him to come to the emergency department. Physical exam is overall unremarkable or consistent with patient's chronic medical state. Daughter is also present and states no other concerns beyond patient's pain control. We will give patient his normally prescribed short acting opiate with some acetaminophen and will reassess patient prior to performing any further work-up given that this seems more of a medication issue than a new medical complaint Reassessed patient and patient states significant improvement and that he is back to his normal baseline. Patient does live at home by himself but daughter states that she checks and assist patient quite often along with others in the family. Discussed with them their comfortability about discharge home with close monitoring and return for any new or different medical complaints otherwise discussed medication regimen. They were in agreement and were requesting discharge home which I feel is reasonable. Patient recommended to follow-up with primary care provider for further discussion of medication changes regimen as needed. After discussion of diagnosis and plan of care patient has no further needs, questions, or concerns and states clear understanding to return to the emergency department for any worsening symptoms. This documentation was generated using [employer] system, please disregard any oddities of phrase or misspellings. HPI General Mode of arrival: EMS . Date/Time Provider Initiated Documentation: 07/28/23 17:29 . Limitations to Documentation: no limitations . Information obtained by: patient and RN notes reviewed . History of Present Illness 78 year old M presents to the emergency department with the chief complaint of Medication complications, back pain, described as similar to prior episodes, Patient reports radiation to back. Patient started experiencing this year(s) and it has been constant. Medication improves symptom(s), Patient notes no other symptoms.. Related Data Home Medications Medication Instructions Recorded Confirmed aspirin 81 mg chewable tablet 1 tab.chew PO DAILY 03/23/13 07/28/23 (Aspirin Low-Strength) cholecalciferol (vitamin D3) 25 1 cap PO DAILY 03/23/13 07/28/23 mcg (1,000 unit) capsule multivitamin 1 ea PO DAILY 03/23/13 07/28/23 sildenafil 100 mg tablet 100 mg PO DAILY PRN sexual 01/05/21 07/28/23 activity #10 tabs acetaminophen 500 mg tablet 500 mg PO Q6H PRN pain #60 tabs 08/28/22 07/28/23 Xarelto 15 mg tablet (rivaroxaban) 15 mg PO DAILY #90 tabs 10/23/22 07/28/23 prednisone 10 mg tablet 10 mg PO DAILY PRN spinal stenosis 01/21/23 07/28/23 #90 tab-caps carvedilol 25 mg tablet 25 mg PO BID #180 tabs 02/20/23 07/28/23 furosemide 40 mg tablet 60 mg PO QAM #135 tabs 03/12/23 07/28/23 tamsulosin 0.4 mg capsule 0.4 mg PO QHS #90 caps 03/12/23 07/28/23 tramadol 50 mg tablet 50 mg PO TID PRN pain #21 tabs 03/12/23 07/28/23 potassium chloride 20 mEq 20 meq PO DAILY #90 tabs 03/13/23 07/28/23 tablet,extended release indomethacin 25 mg capsule 25 mg PO BID PRN pain #20 caps 04/18/23 07/28/23 oxycodone 5 mg tablet 5 mg PO TID PRN pain #15 tabs 07/23/23 07/28/23 morphine 30 mg tablet,extended 30 mg PO Q12H #60 tabs 07/25/23 07/28/23 release morphine 30 mg tablet,extended 30 mg PO 2XD 07/28/23 07/28/23 release Previous Rx's Medication Instructions Recorded sildenafil 100 mg tablet 100 mg PO DAILY PRN sexual 01/05/21 activity #10 tabs acetaminophen 500 mg tablet 500 mg PO Q6H PRN pain #60 tabs 08/28/22 Xarelto 15 mg tablet (rivaroxaban) 15 mg PO DAILY #90 tabs 10/23/22 prednisone 10 mg tablet 10 mg PO DAILY PRN spinal stenosis 01/21/23 #90 tab-caps carvedilol 25 mg tablet 25 mg PO BID #180 tabs 02/20/23 furosemide 40 mg tablet 60 mg PO QAM #135 tabs 03/12/23 tamsulosin 0.4 mg capsule 0.4 mg PO QHS #90 caps 03/12/23 tramadol 50 mg tablet 50 mg PO TID PRN pain #21 tabs 03/12/23 potassium chloride 20 mEq 20 meq PO DAILY #90 tabs 03/13/23 tablet,extended release indomethacin 25 mg capsule 25 mg PO BID PRN pain #20 caps 04/18/23 oxycodone 5 mg tablet 5 mg PO TID PRN pain #15 tabs 07/23/23 morphine 30 mg tablet,extended 30 mg PO Q12H #60 tabs 07/25/23 release Allergies Allergy/AdvReac Type Severity Reaction Status Date / Time niacin AdvReac Intermediate GETS HOT Verified 03/12/23 13:22 AND RED ALL OVER Iegfang-ZHL-OgY Reductase AdvReac Intermediate FEELS Verified 03/12/23 13:22 Inhibitor ROTTEN [Ubbljxe-Dhp-Kei Reductase Inhibitor] General Stated Complaint: Nk/Back Pain BROOKS: 3 Review of Systems Constitutional Constitutional: Denies chills and Denies fever(s) ENT Ears, Nose, Mouth, and Throat: Denies neck pain and Denies disequilibrium Cardiovascular Cardiovascular: Denies chest pain and Denies dyspnea Respiratory Respiratory: Denies dyspnea Gastrointestinal Gastrointestinal: Denies abdominal pain Musculoskeletal Musculoskeletal: Reports as per HPI, Reports back pain, Denies neck pain and Denies numbness Neurologic Neurologic: Denies numbness and Denies disequilibrium PFSH All Active Problems Chronic pain with drug dependence (Acute) Chronic back pain (Acute) Alcohol intake above recommended sensible limits (Chronic) Anticoagulant long-term use (Chronic 08/16/17) Benign prostatic hyperplasia (Chronic) Bilateral foot pain (Chronic 10/31/17) Coronary atherosclerosis of [place] coronary vessel (Chronic) S/P CABG declines medication 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) [facility]- Chronic systolic CHF, NYHA class 2 and LINDSEY/AHA stage C (Chronic 08/16/17) Essential hypertension (Chronic 07/27/16) Gout (Chronic) Irreducible epigastric hernia (Chronic) Ischemic cardiomyopathy (Chronic 11/09/16) S/P ICD (internal cardiac defibrillator) procedure (Chronic 06/24/17) low ef Spinal stenosis of lumbar region at multiple levels (Chronic 07/12/15) History of coronary artery bypass surgery (Chronic) Chronic atrial fibrillation (Acute) Sebaceous cyst (Acute) Median nerve dysfunction (Acute) Weight loss (Acute) Bilateral carpal tunnel syndrome (Acute) s/p Right ECTR DOS: 08/14/22 s/p Left ECTR DOS: 08/28/22 Cubital tunnel syndrome, bilateral (Acute) Low left ventricular ejection fraction (Acute) Medical History Atrial tachycardia (08/16/17) Disorder of lung lung infiltrate; question of aspiration long antibx couse Dario hematuria Pre-operative examination See attached sheets. Will need to stop Eliquis 5 days prior to surgery, take care in positioning pt during surgery due to recent back surgery, and he will notify if he develops URI or rash. Otherwise cleared for surgery. Surgical History History of back surgery Pacemaker (06/19/17) PROCEDURES AORTOCORONARY BYPASS Family History Mother Brain cancer Father Heart disease CHF Sister No problems noted. Brother No problems noted. Maternal Grandfather Cancer Paternal Grandfather No problems noted. Maternal Grandmother No problems noted. Paternal Grandmother Heart disease Sister No problems noted. Brother No problems noted. Son Depression Heart disease [place] at 38, 6 stents Daughter No problems noted. Social History Smoking/Tobacco Use Status: Former Tobacco Use Quit Date: 11/18/87 Tobacco: How many years used: 40 Second Hand Exposure: Yes Smoking risk assessment performed?: Yes Alcohol Intake: current Alcohol Intake frequency: 3 or more drinks per day Details: significantly higher alcohol use in the past Drug use: Never Substance use type: does not use Household members: none Housing: house Communication Needs: None Do you need help understanding health information?: Rarely Pets and animals: Yes Pets and animals: dog(s) Sexually active: No Do you think of yourself as: straight/heterosexual Current gender identity: male What is your relationship status?: How often do you talk on the phone with friends or family?: three or more times per week How often do you get together with friends or relatives?: three or more times per week How often do you attend restorationist or evangelical services?: decline to answer Do you belong to any clubs or organized social groups?: no Panel score (0-1 are the most socially isolated patients): 1 What type of physical activity do you participate in: other Duration: decline to answer Frequency: decline to answer Azul/Rastafari: No preference Special azul needs: No Seatbelt use: never Helmet use: No Drive intox or ride w/intox telephone directory distributor driver: No Do you feel safe at home: Yes Do you feel safe in your relationship?: Yes Exam Const General: cooperative, no acute distress and not ill appearing Orientation: alert, awake and oriented x3 HENMT Mouth: moist mucous membranes Resp Effort & Inspection: normal respiratory effort, able to speak in complete sentences and no respiratory distress Cardio Rate: regular rate Rhythm: regular rhythm Heart Sounds: S1 normal GI Palpation: soft and nontender Auscultation: normal bowel sounds Back/Spine/Pelvis Thoracic/Lumbar Spine: paraspinal tenderness and lumbar spinal tenderness Skin General skin exam: no rashes or lesions noted Neuro General: patient alert, patient awake, patient oriented x3, moves all extremities and no focal motor deficits Sensory Exam: no sensory deficits noted Course Vital Signs Vital signs: Vital Signs Temperature 37.8 C H 07/28/23 17:27 Pulse 94 H 07/28/23 17:27 Respiratory Rate 15 07/28/23 17:27 Blood Pressure 112/70 07/28/23 17:27 Pulse Oximetry 93 07/28/23 17:27 Temperature 37.8 C H 07/28/23 17:27 Temperature Source Oral 07/28/23 17:27 Pulse 94 H 07/28/23 17:27 Respiratory Rate 15 07/28/23 17:27 Respiratory Effort Normal, Non-Labored, Short of Breath 07/28/23 18:35 Blood Pressure 112/70 07/28/23 17:27 Blood Pressure Position Sitting 07/28/23 17:27 Pulse Oximetry 93 07/28/23 17:27 Oxygen Delivery Method Room Air 07/28/23 17:27 Oxygen Flow Rate 0 07/28/23 17:27 Pain Level 7 07/28/23 18:35
== END 2023-07-28 19:15 | disposition home or self-care (01) ==
PROVIDERS: Emergency Provider Nurse Practitioner Family; PCP Family Medicine
DX: M48.061 Spinal stenosis, lumbar region without neurogenic claudication (principal); G89.29 Other chronic pain
CPT/HCPCS: 99283; 99284